=== PATIENT | male | born 1975 | race Caucasian/White ===

== ENCOUNTER → 2020-09-17 08:04 | Outpatient (BNVA) | payer OTHER, SELFPAY | PROVIDERS: PCP Internal Medicine Medical Oncology; Referring Provider Internal Medicine Medical Oncology; Visit Provider Surgery | DX: Z76.89 Persons encountering health services in other specified circumstances (principal) ==

== ENCOUNTER → 2020-10-27 07:26 | Outpatient (BNVA) | payer OTHER, SELFPAY | PROVIDERS: PCP Internal Medicine Medical Oncology; Visit Provider Surgery | DX: Z76.89 Persons encountering health services in other specified circumstances (principal) ==

== ENCOUNTER 2020-10-29 08:53 | Outpatient (REF) | payer OTHER, SELFPAY ==
[2020-10-29 09:38] LABS: MANUAL DIFF FLAG NO
[2020-10-29 09:41] LABS: Basophils Percent Auto 0.5 % (0-2); Eosinophils Absolute Auto 0.1 X10*3/uL (0.0-0.4); Eosinophils Percent Auto 1.2 % (0-4); Hemoglobin 15.5 g/dl (14.0-18.0); Imm Gran Abs Auto 0.01 X10*3/uL (0.00-0.03); Imm Gran Pct Auto 0.2 % (0.0-0.4); Lymphocytes Absolute Auto 1.8 X10*3/uL (1.2-4.9); Lymphocytes Percent Auto 43.2 % (20-40); Mean Corpuscular HGB Conc 33.7 g/dl (31.0-36.0); Mean Corpuscular Hemoglobin 30.3 pg (27.0-33.0); Mean Corpuscular Volume 89.8 fL (80-98); Mean Platelet Volume 10.5 fL (9.4-12.4); Monocytes Absolute Auto 0.4 X10*3/uL (0.1-1.2); Monocytes Percent Auto 8.2 % (2-11); Neutrophils Percent Auto 46.7 % (45-73); Platelet Count 184 X10*3/uL (160-400); Red Blood Count 5.12 X10*6/uL (4.60-5.80); White Blood Count 4.3 X10*3/uL (4.8-10.8)
[2020-10-29 10:18] LABS: Alanine Aminotransferase 22 U/L (0-40); Albumin Level 4.4 g/dL (3.5-5.0); Alkaline Phosphatase 121 U/L (39-117); Anion Gap 14 (12-20); Aspartate Amino Transferase 21 U/L (5-37); Bilirubin Total 1.7 mg/dL (0.0-1.0); Blood Urea Nitrogen 23 mg/dL (9-16); C Reactive Protein 0.24 mg/dL (< or = 0.50); Calcium 9.9 mg/dL (8.4-10.2); Carbon Dioxide 28 mmol/L (22-29); Chloride 104 mmol/L (96-108); Cholesterol 147 mg/dL; Estimated Glomerular Filt Rate > 60; Glucose Random 83 mg/dL (60-115); HDL Cholesterol 40 mg/dL; LDL Cholesterol Calculated 90 mg/dl; Potassium 4.9 mmol/l (3.3-5.1); Sodium 141 mmol/L (135-145); Total Protein 7.2 g/dL (6.5-8.0); Triglycerides 88 mg/dL
[2020-10-29 10:42] LABS: Ferritin 251 ng/mL (20-250); TSH reflex Free T4 0.95 mIU/mL (0.32-4.0); Vitamin D 25-OH Total 61.9 ng/mL (>30)
[2020-10-29 10:44] LABS: Estimated Average Glucose 88 mg/dL; Hemoglobin A1c % 4.7 %
[2020-10-29 11:04] LABS: Folate 17.6 ng/mL (> or = 4.0); Vitamin B12 804 pg/mL (200-900)
[2020-10-30 18:57] LABS: PTHI 20 pg/mL (14-64)
[2020-10-30 21:37] LABS: Insulin Level Total 1.9 uIU/mL
[2020-11-01 07:32] LABS: Zinc 93 mcg/dL (60-130)
[2020-11-02 12:03] LABS: Vitamin B1 13 nmol/L (8-30)
[2020-11-07 00:58] LABS: Vitamin A 110 mcg/dL (38-98)
== END 2020-10-29 08:54 | disposition home or self-care (01) ==
LOC: HO.LAB 08:53
PROVIDERS: PCP Internal Medicine Medical Oncology; Visit Provider Surgery
DX: K90.9 Intestinal malabsorption, unspecified (principal); I95.1 Orthostatic hypotension; Z98.84 Bariatric surgery status
CPT/HCPCS: 36415; 80053; 80061; 82306; 82607; 82728; 82746; 83036; 83525; 83970; 84425; 84443; 84590; 84630; 85025; 86140

== ENCOUNTER 2020-11-24 04:40 | Emergency (ER) | payer OTHER, SELFPAY ==
[2020-11-24 04:46] VITALS: BP 115/74; PULSE 86; RESP 16; TEMP 37.1; O2SAT 99; BMI 20.5
--- NOTE | 2020-11-24 04:53 | PC.NURSE ---
PT AMBULATES TO [facility] -3 WITH C/O FEVER, CHILLS, BODY ACHES, UNABLE TO TASTE SINCE LAST NIGHT. PT ARRIVES ALERT, RESPIRATIONS EASY, N/L. SKIN W/D. PT AWAITING FOR MD'S EVAL. WILL CONTINUE TO MONITOR PT.
--- NOTE | 2020-11-24 05:14 | ED.FEVER ---
HPI - Fever General Chief Complaint: Fever Stated Complaint: FLU LIKE SYMPTOMS Time Seen by Provider: 11/24/20 04:51 Source: patient Mode of arrival: ambulatory History of Present Illness HPI Narrative: This is a 45-year-old male who presents with onset of body aches and chills throughout the night and states that he had loss of taste this morning and measured his temperature 100.3. This was not associated with any GI symptoms, cough, sore throat, ear pain, COVID-19 exposure, recent travel. Related Data Home Medications Medication Instructions Recorded Confirmed pantoprazole 40 mg tablet,delayed 40 mg PO DAILY 09/17/20 release Allergies Allergy/AdvReac Type Severity Reaction Status Date / Time No Known Allergies Allergy Unverified 08/14/20 19:46 [No Known Allergies*] NKA Allergy Unknown Uncoded 07/07/20 00:00 Review of Systems Review of Systems: Pertinent positives and negatives as stated in the HPI and 10 point review systems is otherwise negative. PMFSH Past Medical History Source: nursing notes reviewed Medical History Intestinal malabsorption Surgical History Hx of laparoscopic gastric banding S/P laparoscopic sleeve gastrectomy Family History Family History Father No problems noted. Mother Sleep apnea Social History Social History Alcohol intake: current Smoking Status: Never smoker Advance Directives: No Physical Exam Vital Signs: Vital Signs: Last Vital Signs Temp 98.8 F 11/24/20 04:46 Pulse 86 11/24/20 04:46 Resp 16 11/24/20 04:46 BP 115/74 11/24/20 04:46 Pulse Ox 99 11/24/20 04:46 Body Mass Index 20.5 VITAL SIGNS: Reviewed. GENERAL: Well developed, well nourished, in no acute distress. HEAD: Normocephalic/atraumatic, EYES: PERRLA, EOMI intact without pain EARS: Ext canals without abnormality, TMs non-bulging and non-erythematous OROPHARYNX: no oral lesions noted, posterior pharynx clear and non-erythematous without noted tonsillar enlargement/erythema/exudates NECK: Supple, no adenopathy LUNGS: Normal breath sounds. No adventitious sounds or accessory muscle use. SpO2<99> CARDIOVASCULAR: Regular rate and rhythm without noted murmurs, no JVD or lower extremity edema. ABDOMEN: Soft, non-tender, non-distended with bowel sounds. No rigidity. No guarding. No palpable masses or hernias noted NEUROLOGIC: Alert and oriented x 4. Course Course Course Narrative: This is a 45-year-old male with history and clinical presentation consistent with viral symptoms without evidence hypoxia, tachypnea, and currently afebrile. Patient was COVID-19 tested and otherwise instructed to self quarantine to the results are called to him. He was encouraged to return should he develop any shortness of breath or worsening symptoms. Discharge Plan Discharge Clinical Impression: Viral syndrome Patient Disposition: Home, Self-Care Instructions: Viral Syndrome (ED) Additional Instructions: 1. Resume all home medications as prescribed. 2. Tylenol 1000 mg, orally, every 6 hours as needed for temperature than 100.4 or body aches. Do not exceed 4000 mg within 24 hours. 3. Increase fluid hydration especially with water 4. You have been COVID-19 tested today and must self quarantine as per [facility] guidelines. This means that you should not be grocery shopping or out in public then use until the results of your testing have been called to you. Prescriptions: No Action pantoprazole 40 mg tablet,delayed release (DR/EC) 40 mg PO DAILY RF: 0 Referrals: Mainor Masters MD [Primary Care Provider] - 2 days
== END 2020-11-24 05:18 | disposition home or self-care (01) ==
PROVIDERS: Emergency Provider Student in an Organized Health Care Education/Training Program; PCP Internal Medicine Medical Oncology
DX: B34.9 Viral infection, unspecified (principal); R50.9 Fever, unspecified; M79.10 Myalgia, unspecified site; Z20.828 Contact with and (suspected) exposure to other viral communicable diseases; Z79.899 Other long term (current) drug therapy
CPT/HCPCS: 99283; U0003

== ENCOUNTER → 2020-12-01 08:15 | Outpatient (BNVA) | payer OTHER, SELFPAY | PROVIDERS: PCP Internal Medicine Medical Oncology; Visit Provider Surgery | DX: Z76.89 Persons encountering health services in other specified circumstances (principal) ==

== ENCOUNTER → 2020-12-18 13:41 | Outpatient (BNVA) | payer OTHER, SELFPAY | PROVIDERS: PCP Internal Medicine Medical Oncology; Visit Provider Internal Medicine ==

== ENCOUNTER → 2020-12-23 08:12 | Outpatient (BNVA) | payer OTHER, SELFPAY | PROVIDERS: PCP Internal Medicine Medical Oncology; Visit Provider Physician Assistant ==

== ENCOUNTER → 2020-12-30 13:55 | Outpatient (BNVA) | payer OTHER, SELFPAY | PROVIDERS: PCP Internal Medicine Medical Oncology; Visit Provider Dietitian, Registered ==

== ENCOUNTER → 2021-01-27 08:12 | Outpatient (BNVA) | payer OTHER, SELFPAY | PROVIDERS: PCP Internal Medicine Medical Oncology; Visit Provider Dietitian, Registered ==

== ENCOUNTER → 2021-04-21 08:11 | Outpatient (BNVA) | payer OTHER, SELFPAY | PROVIDERS: PCP Internal Medicine Medical Oncology; Visit Provider Dietitian, Registered | DX: E66.3 Overweight (principal); Z68.26 Body mass index [BMI] 26.0-26.9, adult | CPT/HCPCS: 97803 ==

== ENCOUNTER → 2021-06-02 14:56 | Outpatient (BNVA) | payer OTHER, SELFPAY | PROVIDERS: PCP Internal Medicine Medical Oncology; Visit Provider Physician Assistant ==

== ENCOUNTER 2021-06-10 08:06 | Outpatient (REF) | payer OTHER, SELFPAY ==
[2021-06-10 08:38] LABS: MANUAL DIFF FLAG NO
[2021-06-10 08:41] LABS: Basophils Percent Auto 0.4 % (0-2); Eosinophils Percent Auto 0.8 % (0-4); Hematocrit 44.8 % (42-52); Hemoglobin 15.4 g/dl (14.0-18.0); Imm Gran Abs Auto 0.02 X10*3/uL (0.00-0.03); Imm Gran Pct Auto 0.4 % (0.0-0.4); Lymphocytes Percent Auto 39.1 % (20-40); Mean Corpuscular HGB Conc 34.4 g/dl (31.0-36.0); Mean Corpuscular Hemoglobin 29.8 pg (27.0-33.0); Mean Corpuscular Volume 86.8 fL (80-98); Mean Platelet Volume 9.5 fL (9.4-12.4); Monocytes Absolute Auto 0.4 X10*3/uL (0.1-1.2); Monocytes Percent Auto 8.2 % (2-11); Neutrophils Absolute Auto 2.6 X10*3/uL (2.0-8.3); Neutrophils Percent Auto 51.1 % (45-73); Platelet Count 178 X10*3/uL (160-400); Red Blood Count 5.16 X10*6/uL (4.60-5.80); Red Cell Distribution Width 12.3 % (11.0-16.0); White Blood Count 5.1 X10*3/uL (4.8-10.8)
[2021-06-10 09:01] LABS: Estimated Average Glucose 94 mg/dL; Hemoglobin A1c % 4.9 %
[2021-06-10 09:12] LABS: Alanine Aminotransferase 15 U/L (0-40); Albumin Level 4.3 g/dL (3.5-5.0); Alkaline Phosphatase 107 U/L (39-117); Anion Gap 12 (12-20); Aspartate Amino Transferase 19 U/L (5-37); Blood Urea Nitrogen 17 mg/dL (9-16); C Reactive Protein 0.06 mg/dL (< or = 0.50); Calcium 9.5 mg/dL (8.4-10.2); Carbon Dioxide 26 mmol/L (22-29); Chloride 107 mmol/L (96-108); Cholesterol 145 mg/dL; Estimated Glomerular Filt Rate > 60; Glucose Fasting 90 mg/dL (60-99); HDL Cholesterol 49 mg/dL; Iron 122 mcg/dL (45-160); LDL Cholesterol Calculated 76 mg/dl; Percent Iron Saturation 38 % (15-50); Potassium 4.5 mmol/L (3.3-5.1); Sodium 140 mmol/L (135-145); Total Iron Binding Capacity 317 mcg/dL (228-428); Total Protein 7.1 g/dL (6.5-8.0); Triglycerides 104 mg/dL; Unsaturated Iron Binding 195 ug/dL
[2021-06-10 09:32] LABS: Ferritin 224 ng/mL (20-250); TSH reflex Free T4 0.99 uIU/mL (0.32-4.0); Vitamin D 25-OH Total 27.1 ng/mL (>30)
[2021-06-10 09:49] LABS: Folate 8.6 ng/mL (> or = 4.0); Vitamin B12 463 pg/mL (200-900)
[2021-06-11 14:56] LABS: Calcium (PTHI) 9.5 mg/dL (8.6-10.3); PTHI 33 pg/mL (14-64)
[2021-06-11 23:26] LABS: Insulin Level Total 5.3 uIU/mL
[2021-06-15 03:07] LABS: Zinc 70 mcg/dL (60-130)
[2021-06-15 11:42] LABS: Vitamin B1 10 nmol/L (8-30)
[2021-06-15 19:01] LABS: Vitamin A 54 mcg/dL (38-98)
== END 2021-06-10 08:07 | disposition home or self-care (01) ==
LOC: HO.LAB 08:06
PROVIDERS: Physician Assistant; PCP Internal Medicine Medical Oncology; Visit Provider Surgery
DX: I95.1 Orthostatic hypotension (principal); K91.2 Postsurgical malabsorption, not elsewhere classified; E66.01 Morbid (severe) obesity due to excess calories; Z90.3 Acquired absence of stomach [part of]; Z98.84 Bariatric surgery status
CPT/HCPCS: 36415; 80053; 80061; 82306; 82607; 82728; 82746; 83036; 83525; 83540; 83970; 84425; 84443; 84590; 84630; 85025; 86140

== ENCOUNTER → 2021-06-30 13:41 | Outpatient (BNVA) | payer OTHER, SELFPAY | PROVIDERS: PCP Internal Medicine Medical Oncology; Visit Provider Internal Medicine | DX: E66.9 Obesity, unspecified (principal); G47.33 Obstructive sleep apnea (adult) (pediatric); Z99.89 Dependence on other enabling machines and devices; Z68.28 Body mass index [BMI] 28.0-28.9, adult | CPT/HCPCS: 97803 ==

== ENCOUNTER → 2021-07-06 12:17 | Outpatient (BNVA) | payer OTHER, SELFPAY | PROVIDERS: PCP Internal Medicine Medical Oncology; Visit Provider Internal Medicine ==

== ENCOUNTER → 2021-09-09 14:22 | Outpatient (BNVA) | payer OTHER, SELFPAY | PROVIDERS: PCP Internal Medicine Medical Oncology; Visit Provider Physician Assistant Surgical ==

== ENCOUNTER → 2021-09-29 16:22 | Outpatient (BNVA) | payer OTHER, SELFPAY | PROVIDERS: PCP Internal Medicine Medical Oncology; Visit Provider Physician Assistant Surgical ==

== ENCOUNTER → 2021-12-01 14:52 | Outpatient (BNVA) | payer OTHER, SELFPAY | PROVIDERS: PCP Internal Medicine Medical Oncology; Visit Provider Physician Assistant Surgical ==

== ENCOUNTER → 2022-01-05 08:07 | Outpatient (BNVA) | payer OTHER, SELFPAY | PROVIDERS: PCP Internal Medicine Medical Oncology; Visit Provider Physician Assistant Surgical | DX: I95.1 Orthostatic hypotension (principal); E66.9 Obesity, unspecified; E55.9 Vitamin D deficiency, unspecified; G47.33 Obstructive sleep apnea (adult) (pediatric); Z99.89 Dependence on other enabling machines and devices; Z98.84 Bariatric surgery status; Z68.33 Body mass index [BMI] 33.0-33.9, adult | CPT/HCPCS: 93005; Q3014 ==

== ENCOUNTER → 2022-02-03 08:10 | Outpatient (BNVA) | payer OTHER, SELFPAY | PROVIDERS: PCP Internal Medicine Medical Oncology; Referring Provider Surgery; Visit Provider Physician Assistant Surgical ==

== ENCOUNTER 2022-02-09 09:29 | Outpatient (REF) | payer OTHER, SELFPAY ==
[2022-02-09 09:51] LABS: MANUAL DIFF FLAG NO
[2022-02-09 10:31] LABS: Basophils Percent Auto 0.4 % (0-2); Eosinophils Absolute Auto 0.1 X10*3/uL (0.0-0.4); Eosinophils Percent Auto 1.3 % (0-4); Hematocrit 45.7 % (42.0-52.0); Hemoglobin 15.2 g/dl (14.0-18.0); Imm Gran Abs Auto 0.01 X10*3/uL (0.00-0.03); Imm Gran Pct Auto 0.2 % (0.0-0.4); Lymphocytes Percent Auto 37.6 % (20-40); Mean Corpuscular HGB Conc 33.3 g/dl (31.0-36.0); Mean Corpuscular Hemoglobin 29.2 pg (27.0-33.0); Mean Corpuscular Volume 87.7 fL (80.0-98.0); Mean Platelet Volume 9.3 fL (9.4-12.4); Monocytes Absolute Auto 0.4 X10*3/uL (0.1-1.2); Monocytes Percent Auto 7.9 % (2-11); Neutrophils Absolute Auto 2.8 x10*3/uL (2.0-8.3); Neutrophils Percent Auto 52.6 % (45-73); Platelet Count 187 X10*3/uL (160-400); Red Blood Count 5.21 X10*6/uL (4.60-5.80); Red Cell Distribution Width 12.4 % (11.0-16.0); White Blood Count 5.3 X10*3/uL (4.8-10.8)
[2022-02-09 10:34] LABS: Estimated Average Glucose 91 mg/dL; Hemoglobin A1c % 4.8 %
[2022-02-09 11:02] LABS: Anion Gap 10 (12-20); Blood Urea Nitrogen 14 mg/dL (9-16); C Reactive Protein 0.07 mg/dL (< or = 0.50); Calcium 9.5 mg/dL (8.4-10.2); Carbon Dioxide 30 mmol/L (22-29); Chloride 106 mmol/L (96-108); Cholesterol 131 mg/dL; Estimated Glomerular Filt Rate > 60; Glucose Random 83 mg/dL (60-115); HDL Cholesterol 42 mg/dL; Iron 93 mcg/dL (45-160); LDL Cholesterol Calculated 56 mg/dl; Potassium 4.3 mmol/L (3.3-5.1); Sodium 142 mmol/L (135-145); Triglycerides 169 mg/dL
[2022-02-09 11:16] LABS: Ferritin 177 ng/mL (20-250); TSH reflex Free T4 1.14 uIU/mL (0.32-4.0); Vitamin D 25-OH Total 17.9 ng/mL (>30)
[2022-02-09 11:27] LABS: Percent Iron Saturation 29 % (15-50); Total Iron Binding Capacity 325 mcg/dL (228-428); Unsaturated Iron Binding 232 ug/dL
[2022-02-09 11:38] LABS: Folate 8.2 ng/mL (> or = 4.0); Vitamin B12 473 pg/mL (200-900)
[2022-02-11 07:16] LABS: Calcium (PTHI) 9.9 mg/dL (8.6-10.3); PTHI 36 pg/mL (16-77)
[2022-02-12 13:02] LABS: Zinc 70 mcg/dL (60-130)
[2022-02-13 12:42] LABS: Vitamin B1 13 nmol/L (8-30)
[2022-02-15 13:47] LABS: Vitamin A 65 mcg/dL (38-98)
== END 2022-02-09 09:30 | disposition home or self-care (01) ==
LOC: HO.LAB 09:29
PROVIDERS: PCP Internal Medicine Medical Oncology; Visit Provider Physician Assistant Surgical
DX: E66.9 Obesity, unspecified (principal); E55.9 Vitamin D deficiency, unspecified; E53.8 Deficiency of other specified B group vitamins; Z98.84 Bariatric surgery status
CPT/HCPCS: 36415; 80048; 80061; 82306; 82607; 82728; 82746; 83036; 83540; 83970; 84425; 84443; 84590; 84630; 85025; 86140

== ENCOUNTER → 2022-03-03 08:10 | Outpatient (BNVA) | payer OTHER, SELFPAY | PROVIDERS: PCP Internal Medicine Medical Oncology; Visit Provider Physician Assistant Surgical | DX: Z13.89 Encounter for screening for other disorder (principal) ==

== ENCOUNTER → 2022-03-11 11:49 | Outpatient (BNVA) | payer OTHER, SELFPAY | PROVIDERS: PCP Internal Medicine Medical Oncology; Visit Provider Counselor Mental Health | DX: Z13.89 Encounter for screening for other disorder (principal) ==

== ENCOUNTER → 2022-03-31 08:18 | Outpatient (BNVA) | payer OTHER, SELFPAY | PROVIDERS: PCP Internal Medicine Medical Oncology; Visit Provider Physician Assistant Surgical | DX: E66.9 Obesity, unspecified (principal) ==

== ENCOUNTER → 2022-04-07 17:00 | Outpatient (BNVA) | payer OTHER, SELFPAY | PROVIDERS: PCP Internal Medicine Medical Oncology; Visit Provider Counselor Mental Health | DX: Z13.89 Encounter for screening for other disorder (principal) ==

== ENCOUNTER → 2022-04-14 17:00 | Outpatient (BNVA) | payer OTHER, SELFPAY | PROVIDERS: PCP Internal Medicine Medical Oncology; Visit Provider Counselor Mental Health | DX: Z13.89 Encounter for screening for other disorder (principal) ==

== ENCOUNTER → 2022-05-26 17:00 | Outpatient (BNVA) | payer OTHER, SELFPAY | PROVIDERS: PCP Internal Medicine Medical Oncology; Visit Provider Counselor Mental Health ==

== ENCOUNTER → 2022-06-09 17:00 | Outpatient (BNVA) | payer OTHER, SELFPAY | PROVIDERS: PCP Internal Medicine Medical Oncology; Visit Provider Counselor Mental Health ==

== ENCOUNTER → 2022-07-28 17:00 | Outpatient (BNVA) | payer OTHER, SELFPAY | PROVIDERS: PCP Internal Medicine Medical Oncology; Visit Provider Counselor Mental Health | DX: F43.20 Adjustment disorder, unspecified (principal); Z98.84 Bariatric surgery status | CPT/HCPCS: 90853 ==

== ENCOUNTER → 2022-08-04 17:00 | Outpatient (BNVA) | payer OTHER, SELFPAY | PROVIDERS: PCP Internal Medicine Medical Oncology; Visit Provider Counselor Mental Health | DX: E66.9 Obesity, unspecified (principal) | CPT/HCPCS: 90882 ==

== ENCOUNTER → 2022-08-11 17:00 | Outpatient (BNVA) | payer OTHER, SELFPAY | PROVIDERS: PCP Internal Medicine Medical Oncology; Visit Provider Counselor Mental Health ==

== ENCOUNTER → 2022-08-25 17:00 | Outpatient (BNVA) | payer OTHER, SELFPAY | PROVIDERS: PCP Internal Medicine Medical Oncology; Visit Provider Counselor Mental Health | DX: F32.A Depression, unspecified (principal); Z98.84 Bariatric surgery status | CPT/HCPCS: 90853 ==

== ENCOUNTER → 2022-09-01 17:00 | Outpatient (BNVA) | payer OTHER, SELFPAY | PROVIDERS: PCP Internal Medicine Medical Oncology; Visit Provider Counselor Mental Health | DX: F43.20 Adjustment disorder, unspecified (principal); Z98.84 Bariatric surgery status | CPT/HCPCS: 90853 ==

== ENCOUNTER → 2022-09-15 17:00 | Outpatient (BNVA) | payer OTHER, SELFPAY | PROVIDERS: PCP Internal Medicine Medical Oncology; Visit Provider Counselor Mental Health | DX: F43.20 Adjustment disorder, unspecified (principal); Z98.84 Bariatric surgery status | CPT/HCPCS: 90853 ==

== ENCOUNTER → 2022-09-22 17:00 | Outpatient (BNVA) | payer OTHER, SELFPAY | PROVIDERS: PCP Internal Medicine Medical Oncology; Visit Provider Counselor Mental Health | DX: F43.20 Adjustment disorder, unspecified (principal); Z98.84 Bariatric surgery status | CPT/HCPCS: 90853 ==

== ENCOUNTER → 2022-09-29 17:00 | Outpatient (BNVA) | payer OTHER, SELFPAY | PROVIDERS: PCP Internal Medicine Medical Oncology; Visit Provider Counselor Mental Health ==

== ENCOUNTER → 2022-10-13 17:00 | Outpatient (BNVA) | payer OTHER, SELFPAY | PROVIDERS: PCP Internal Medicine Medical Oncology; Visit Provider Counselor Mental Health ==

== ENCOUNTER → 2022-10-27 17:00 | Outpatient (BNVA) | payer OTHER, SELFPAY | PROVIDERS: PCP Internal Medicine Medical Oncology; Visit Provider Counselor Mental Health | DX: F43.20 Adjustment disorder, unspecified (principal); Z98.84 Bariatric surgery status | CPT/HCPCS: 90853 ==

== ENCOUNTER → 2022-11-03 17:00 | Outpatient (BNVA) | payer OTHER, SELFPAY | PROVIDERS: PCP Internal Medicine Medical Oncology; Visit Provider Counselor Mental Health | DX: F41.1 Generalized anxiety disorder (principal); Z98.84 Bariatric surgery status | CPT/HCPCS: 90853 ==

== ENCOUNTER → 2022-11-24 17:00 | Outpatient (BNVA) | payer OTHER, SELFPAY | PROVIDERS: PCP Internal Medicine Medical Oncology; Visit Provider Counselor Mental Health | DX: Z13.89 Encounter for screening for other disorder (principal) ==

== ENCOUNTER → 2022-12-01 17:00 | Outpatient (BNVA) | payer OTHER, SELFPAY | PROVIDERS: PCP Internal Medicine Medical Oncology; Visit Provider Counselor Mental Health | DX: F41.1 Generalized anxiety disorder (principal); Z98.84 Bariatric surgery status | CPT/HCPCS: 90853 ==

== ENCOUNTER → 2022-12-29 17:04 | Outpatient (BNVA) | payer OTHER, SELFPAY | PROVIDERS: PCP Internal Medicine Medical Oncology; Visit Provider Counselor Mental Health | DX: F41.1 Generalized anxiety disorder (principal); Z98.84 Bariatric surgery status | CPT/HCPCS: 90853 ==

== ENCOUNTER → 2023-01-05 16:59 | Outpatient (BNVA) | payer OTHER, SELFPAY | PROVIDERS: PCP Internal Medicine Medical Oncology; Visit Provider Counselor Mental Health | DX: F41.1 Generalized anxiety disorder (principal); Z98.84 Bariatric surgery status | CPT/HCPCS: 90853 ==

== ENCOUNTER → 2023-01-19 17:00 | Outpatient (BNVA) | payer OTHER, SELFPAY | PROVIDERS: PCP Internal Medicine Medical Oncology; Visit Provider Counselor Mental Health | DX: F41.1 Generalized anxiety disorder (principal); Z98.84 Bariatric surgery status; Z87.891 Personal history of nicotine dependence | CPT/HCPCS: 90853 ==

== ENCOUNTER → 2023-01-26 16:55 | Outpatient (BNVA) | payer OTHER, SELFPAY | PROVIDERS: PCP Internal Medicine Medical Oncology; Visit Provider Counselor Mental Health | DX: F33.9 Major depressive disorder, recurrent, unspecified (principal); Z98.84 Bariatric surgery status | CPT/HCPCS: 90853 ==

== ENCOUNTER → 2023-02-02 17:08 | Outpatient (BNVA) | payer OTHER, SELFPAY | PROVIDERS: PCP Internal Medicine Medical Oncology; Visit Provider Counselor Mental Health | DX: F33.9 Major depressive disorder, recurrent, unspecified (principal); Z98.84 Bariatric surgery status | CPT/HCPCS: 90853 ==

== ENCOUNTER → 2023-02-16 19:20 | Outpatient (BNVA) | payer OTHER, SELFPAY | PROVIDERS: PCP Internal Medicine Medical Oncology; Visit Provider Counselor Mental Health | DX: Z13.89 Encounter for screening for other disorder (principal) ==

== ENCOUNTER → 2023-02-23 17:01 | Outpatient (BNVA) | payer OTHER, SELFPAY | PROVIDERS: PCP Internal Medicine Medical Oncology; Visit Provider Counselor Mental Health | DX: F33.9 Major depressive disorder, recurrent, unspecified (principal); Z98.84 Bariatric surgery status | CPT/HCPCS: 90853 ==

== ENCOUNTER → 2023-03-02 16:57 | Outpatient (BNVA) | payer OTHER, SELFPAY | PROVIDERS: PCP Internal Medicine Medical Oncology; Visit Provider Counselor Mental Health | DX: F33.9 Major depressive disorder, recurrent, unspecified (principal); Z98.84 Bariatric surgery status | CPT/HCPCS: 90853 ==

== ENCOUNTER → 2023-03-30 17:02 | Outpatient (BNVA) | payer OTHER, SELFPAY | PROVIDERS: PCP Internal Medicine Medical Oncology; Visit Provider Counselor Mental Health | DX: F33.9 Major depressive disorder, recurrent, unspecified (principal); Z98.84 Bariatric surgery status | CPT/HCPCS: 90853 ==

== ENCOUNTER → 2023-04-20 17:00 | Outpatient (BNVA) | payer OTHER, SELFPAY | PROVIDERS: PCP Internal Medicine Medical Oncology; Visit Provider Counselor Mental Health | DX: F33.9 Major depressive disorder, recurrent, unspecified (principal); Z98.84 Bariatric surgery status | CPT/HCPCS: 90853 ==

== ENCOUNTER → 2023-04-27 17:07 | Outpatient (BNVA) | payer OTHER, SELFPAY | PROVIDERS: PCP Internal Medicine Medical Oncology; Visit Provider Counselor Mental Health | DX: F33.9 Major depressive disorder, recurrent, unspecified (principal); Z98.84 Bariatric surgery status | CPT/HCPCS: 90853 ==

== ENCOUNTER → 2023-05-04 19:15 | Outpatient (BNVA) | payer OTHER, SELFPAY | PROVIDERS: PCP Internal Medicine Medical Oncology; Visit Provider Counselor Mental Health | DX: F33.9 Major depressive disorder, recurrent, unspecified (principal); Z98.84 Bariatric surgery status | CPT/HCPCS: 90853 ==

== ENCOUNTER → 2023-05-25 17:00 | Outpatient (BNVA) | payer OTHER, SELFPAY | PROVIDERS: PCP Internal Medicine Medical Oncology; Visit Provider Counselor Mental Health ==

== ENCOUNTER → 2023-05-25 17:00 | Outpatient (BNVA) | payer OTHER, SELFPAY | PROVIDERS: PCP Internal Medicine Medical Oncology; Visit Provider Counselor Mental Health ==

== ENCOUNTER 2023-06-15 17:34 | Outpatient (AMB) | payer OTHER, SELFPAY ==
--- NOTE | 2023-06-16 14:38 | MHC.WMTHER ---
Intake Intake Visit Reasons: group therapy Allergies No Known Allergies [No Known Allergies*] Allergy (Verified 06/02/22 16:05) PFSH Medical History Intestinal malabsorption Intestinal malabsorption following gastrectomy KLARISSA on CPAP Overweight (BMI 25.0-29.9) Vitamin B12 deficiency Vitamin D deficiency Surgical History Hx of laparoscopic gastric banding S/P laparoscopic sleeve gastrectomy Family History Father No problems noted. Mother Sleep apnea Social History Alcohol intake: current Alcohol intake frequency: holidays/special occasions only Patient Tobacco Use Status: Former Tobacco user Years Smoked: 1 year Behavioral Health Assessment Weight Management Therapy Therapy Notes Details Group therapy on cravings, urges and how to curb unwanted behaviors. Discussed handout on [employer]fing. Patient shared his success and struggles with the group. He has been having ongoing difficulty at work and will often cope with food. Assessment & Plan Assessment & Plan (1) Major depressive disorder, recurrent, unspecified: Code(s): F33.9 - Major depressive disorder, recurrent, unspecified (2) S/P laparoscopic sleeve gastrectomy: Code(s): Z98.84 - Bariatric surgery status Plan Pt would benefit from post op group for support and development of positive coping skills, and behavior modification. he is struggling and off his meal plan as wel as exercise regimen. He appears in improved mood this week compared to previous weeks. Coding Level of Care Code Grp Psych (76493) Diagnoses Major depressive disorder, recurrent, unspecified F33.9 S/P laparoscopic sleeve gastrectomy Z98.84 Time Spent (min) 60
== END 2023-06-16 14:38 | disposition home or self-care (01) ==
LOC: HO.HBST 17:34
PROVIDERS: PCP Internal Medicine Medical Oncology; Visit Provider Counselor Mental Health
DX: F33.9 Major depressive disorder, recurrent, unspecified (principal); Z98.84 Bariatric surgery status

== ENCOUNTER → 2023-06-15 17:34 | Outpatient (BNVA) | payer OTHER, SELFPAY | PROVIDERS: PCP Internal Medicine Medical Oncology; Visit Provider Counselor Mental Health | DX: F33.9 Major depressive disorder, recurrent, unspecified (principal); E66.3 Overweight; Z98.84 Bariatric surgery status | CPT/HCPCS: 90853 ==

== ENCOUNTER → 2023-07-13 17:00 | Outpatient (BNVA) | payer OTHER, SELFPAY | PROVIDERS: PCP Internal Medicine Medical Oncology; Visit Provider Counselor Mental Health ==

== ENCOUNTER → 2023-07-13 17:00 | Outpatient (BNVA) | payer OTHER, SELFPAY | PROVIDERS: PCP Internal Medicine Medical Oncology; Visit Provider Counselor Mental Health ==

== ENCOUNTER 2023-08-24 19:11 | Outpatient (AMB) | payer OTHER, SELFPAY ==
--- NOTE | 2023-08-31 11:02 | MHC.WMTHER ---
Intake Intake Visit Reasons: Group Therapy Allergies No Known Allergies [No Known Allergies*] Allergy (Verified 06/02/22 16:05) PFSH Medical History Intestinal malabsorption Intestinal malabsorption following gastrectomy KLARISSA on CPAP Overweight (BMI 25.0-29.9) Vitamin B12 deficiency Vitamin D deficiency Surgical History Hx of laparoscopic gastric banding S/P laparoscopic sleeve gastrectomy Family History Father No problems noted. Mother Sleep apnea Social History Alcohol intake: current Alcohol intake frequency: holidays/special occasions only Patient Tobacco Use Status: Former Tobacco user Years Smoked: 1 year Behavioral Health Assessment Weight Management Therapy Therapy Notes Details Group therapy session, continuing the conversation on emotional/binge eating from previous weeks workshop. Discussed somatic therapies and POV of the disordered eating as a symptom. Patient was enagaged and cooperative. Assessment & Plan Assessment & Plan (1) Major depressive disorder, recurrent, unspecified: Code(s): F33.9 - Major depressive disorder, recurrent, unspecified (2) S/P laparoscopic sleeve gastrectomy: Code(s): Z98.84 - Bariatric surgery status Plan Pt would benefit from post op group for support and development of positive coping skills, and behavior modification. he is struggling and off his meal plan as well as exercise regimen. He appears in improved mood this week compared to previous weeks. Coding Level of Care Code Grp Psych (76345) Diagnoses Major depressive disorder, recurrent, unspecified F33.9 S/P laparoscopic sleeve gastrectomy Z98.84 Time Spent (min) 60
== END 2023-08-31 11:02 | disposition home or self-care (01) ==
PROVIDERS: PCP Internal Medicine Medical Oncology; Visit Provider Counselor Mental Health
DX: F33.9 Major depressive disorder, recurrent, unspecified (principal); Z98.84 Bariatric surgery status

== ENCOUNTER → 2023-08-24 19:11 | Outpatient (BNVA) | payer OTHER, SELFPAY | PROVIDERS: PCP Internal Medicine Medical Oncology; Visit Provider Counselor Mental Health | DX: F33.9 Major depressive disorder, recurrent, unspecified (principal); Z98.84 Bariatric surgery status | CPT/HCPCS: 90853 ==

== ENCOUNTER 2023-09-21 19:02 | Outpatient (AMB) | payer OTHER, SELFPAY ==
--- NOTE | 2023-09-22 09:41 | MHC.WMTHER ---
Intake Intake Visit Reasons: Group Therapy Allergies No Known Allergies [No Known Allergies*] Allergy (Verified 06/02/22 16:05) PFSH Medical History Intestinal malabsorption Intestinal malabsorption following gastrectomy KLARISSA on CPAP Overweight (BMI 25.0-29.9) Vitamin B12 deficiency Vitamin D deficiency Surgical History Hx of laparoscopic gastric banding S/P laparoscopic sleeve gastrectomy Family History Father No problems noted. Mother Sleep apnea Social History Alcohol intake: current Alcohol intake frequency: holidays/special occasions only Patient Tobacco Use Status: Former Tobacco user Years Smoked: 1 year Behavioral Health Assessment Weight Management Therapy Therapy Notes Details Group therapy session on Hurry Sickness . How to reduce stress related to rushing, lateness, poor time management. Pt was present, less engaging today however attentive. Assessment & Plan Assessment & Plan (1) Major depressive disorder, recurrent, unspecified: Code(s): F33.9 - Major depressive disorder, recurrent, unspecified (2) S/P laparoscopic sleeve gastrectomy: Code(s): Z98.84 - Bariatric surgery status Plan Pt would benefit from post op group for support and development of positive coping skills, and behavior modification. he is struggling and off his meal plan as well as exercise regimen. He appears in improved mood this week compared to previous weeks. Coding Level of Care Code Grp Psych ([id number]) Diagnoses Major depressive disorder, recurrent, unspecified F33.9 S/P laparoscopic sleeve gastrectomy Z98.84 Time Spent (min) 60
== END 2023-09-22 09:41 | disposition home or self-care (01) ==
LOC: HO.HBST 19:02
PROVIDERS: PCP Internal Medicine Medical Oncology; Visit Provider Counselor Mental Health
DX: F33.9 Major depressive disorder, recurrent, unspecified (principal); Z98.84 Bariatric surgery status

== ENCOUNTER → 2023-09-21 19:02 | Outpatient (BNVA) | payer OTHER, MEDICAID, SELFPAY | PROVIDERS: PCP Internal Medicine Medical Oncology; Visit Provider Counselor Mental Health | DX: F33.9 Major depressive disorder, recurrent, unspecified (principal); Z98.84 Bariatric surgery status | CPT/HCPCS: 90853 ==

== ENCOUNTER 2024-03-27 10:59 | Outpatient (AMB) | payer MEDICAID, SELFPAY ==
--- NOTE | 2024-03-27 11:08 | MHC.OFFVIS ---
Vital Signs 03/27/24 11:09 Height 5 ft 10 in Weight 317 lb 7.45 oz BMI 45.5 BP 120/74 Blood Pressure Location Lt brachial Position Sitting Pulse 91 Pulse Source Pulse Oximeter Pulse Oximetry (%) 98 Oxygen Delivery Method Room Air Intake Visit Reasons: Obstructive sleep apnea Intake Note: pt is here for follow up and KLARISSA, he states for the past month , he has not been sleeping well, it seems like he doesn't feel pressure like in the past, sleeping 9-10 hours and still waking up tired, and snoring very loudly at times. Entry Level Account Representative Required: No Allergies No Known Allergies [No Known Allergies*] Allergy (Verified 03/27/24 11:30) Medication List - Last Reconciled 03/27/24 by Ambrocio Becker MD bupropion HCl XL 300 mg PO DAILY cholecalciferol (vitamin D3) (Vitamin D3) 125 mcg PO DAILY Do you need a note to return to daycare/school/sports/work: No HPI HPI Obstructive sleep apnea: Details: THIS GENTLEMAN IS 48 YEARS OLD MORBIDLY OBESE, AND CASE OF OBSTRUCTIVE SLEEP APNEA. HIS WEIGHT IS AT A STENT STILL, HE IS NOW TALKING TO A DIETITIAN, AND TRYING TO CONTROL HIS CALORIES INTAKE. HE HAS BEEN USING HIS CPAP REGULARLY WITH FULL FACE MASK AND PRESSURE IS RELATIVELY LOW, 10 CM. LAST TIME HE WAS SEEN BY ME WAS MORE THAN 2 YEARS AGO, AND HE WAS DOING VERY WELL WITH HIS CPAP THERAPY. HE CONTINUES TO USE THE CPAP EVERY NIGHT AND KEEPS IT ON ALMOST 9 HOURS. BUT STILL WAKES UP SLEEPY AND TIRED. HE CLAIMS THAT HE SNORES EVEN WITH THE MASK ON. AND HE HAS NOT GETTING ENOUGH PRESSURE. AT THE SAME TIME HE HAS POOR SLEEP MAINLY BECAUSE OF HIS STRESS DISORDER. HE IS WORKING WITH THE THERAPIST. AND IS ON BUPROPION 300 MG DAILY. ON LICENSE OF [facility] Medical History (Updated 03/27/24 @ 11:39 by Ambrocio Becker MD) Morbid obesity KLARISSA on CPAP Vitamin B12 deficiency Vitamin D deficiency Overweight (BMI 25.0-29.9) Intestinal malabsorption following gastrectomy Intestinal malabsorption Surgical History Hx of laparoscopic gastric banding S/P laparoscopic sleeve gastrectomy Family History Father No problems noted. Mother Sleep apnea Social History Alcohol intake: current Alcohol intake frequency: holidays/special occasions only Patient Tobacco Use Status: Former Tobacco user Years Smoked: 1 year Review of Systems Const All systems reviewed & are unremarkable except as noted in HPI and below Denies snoring Eyes Reports no additional complaints ENT Reports no additional complaints Card Denies chest pain, Denies irregular heart rhythm, Denies leg edema and Denies dyspnea on exertion Resp Denies cough, Denies dyspnea on exertion, Denies snoring and Denies wheezing GI Reports as per HPI Reports no additional complaints Musc Reports no additional complaints Skin/Breast Reports system reviewed and no additional complaints, except as documented Neuro Reports no additional complaints Psych Reports no additional complaints Aller/Immun Denies wheezing Physical Exam Vital Signs: Last Vital Signs Pulse 91 03/27/24 11:09 BP 120/74 03/27/24 11:09 Pulse Ox 98 03/27/24 11:09 Oxygen Delivery Method Room Air 03/27/24 11:09 BMI result Body Mass Index 45.5 Const General: healthy appearing, comfortable, no acute distress, alert and awake Orientation/consciousness: patient oriented x3 HEENT Head: Yes normal to inspection General nose exam: No nasal polyps present and No nasal discharge present Face and sinus: Yes sinuses nontender Mouth: oropharynx normal Throat: Yes posterior oropharynx normal Eyes General: appearance normal, both eyes and all related structures Neck Neck: Yes normal visual inspection, Yes no lymphadenopathy, Yes trachea midline and Yes no JVD Thyroid: Thyroid normal Chest Chest palpation & inspection: normal inspection of the chest, normal palpation of entire chest wall and no tenderness Resp Effort & Inspection: normal respiratory effort Auscultation: clear to auscultation bilaterally, no crackles and no wheezes Percussion: percussion normal Cardio Palpation: normal PMI Rate: regular rate Rhythm: regular rhythm Heart sounds: no gallops and no murmurs Peripheral pulses: Peripheral pulses 2+ throughout GI Palpation (GI): Soft to palpation, nontender, No hepatosplenomegaly present and no masses Auscultation: normal bowel sounds Back/Spine/Pelvis Thoracic/Lumbar Spine: thoracic and lumbar spine normal to inspection Skin General skin exam: no rashes or lesions noted Neuro General: patient oriented x3 and no focal motor deficits Cranial nerves: Yes CN's II-XII intact bilaterally Extrem General: Yes normal to inspection, Yes no clubbing, cyanosis or edema and Yes no calf tenderness Psych Appearance: grossly normal and well kempt Speech and movement: Normal speech and movement present Results Reviewed Results Reviewed: COMPLIANCE REPORT FOR THE LAST 30 NIGHTS REVIEWED WHICH IS EXCELLENT USED 30/30 NIGHTS AVERAGE USE PER NIGHT 9 HOURS 11 MINUTES, PRESSURE IS 10 CM, THERE IS NO SIGNIFICANT AIR LEAK. RESIDUAL AHI 2.8 Assessment & Plan Assessment & Plan (1) Morbid obesity: Comment: THIS GENTLEMAN HAS HISTORY OF BARIATRIC SURGERY IN THE PAST. INITIALLY HE DID LOSE SOME WEIGHT. NOW HIS WEIGHT IS AT A STANDSTILL. HE CLAIMS THAT HE IS WORKING WITH A DIETITIAN AND TRYING TO LIMIT HIS CALORIES INTAKE. Code(s): E66.01 - Morbid (severe) obesity due to excess calories Category: Medical Plan: ENCOURAGED TO CONTINUE WORKING WITH THE DIETITIAN AND CONTROL HIS DIETARY INTAKE. ALSO ENCOURAGED TO DO SOME EXERCISE AND WALKING EVERY DAY. (2) KLARISSA on CPAP: Comment: HE HAS LONGSTANDING HISTORY OF OBSTRUCTIVE SLEEP APNEA. HE HAS BEEN A REGULAR USER OF CPAP WITH GOOD RESULTS. COMPLAINS OF DIFFICULTY IN SLEEPING, FEELS THAT THE PRESSURE IS LOW, WAKES UP TIRED. HIS POOR SLEEP MAY BE DUE TO HIS UNDERLYING STRESS DISORDER. THE COMPLIANCE REPORT IS FAIRLY GOOD, WITH HIS RESIDUAL AHI OF 2.8 Code(s): G47.33 - Obstructive sleep apnea (adult) (pediatric); Z99.89 - Dependence on other enabling machines and devices Category: Medical Plan: WILL INCREASE THE PRESSURE TO 12 CM, CONTINUE USING CPAP WITH FULLFACE MASK. DISCUSSED WITH HIM RELAXATION EXERCISES FOR A GOOD SLEEP. ADVISE THAT HE SHOULD CONTINUE TO WORK WITH THE THERAPIST. Coding Level of Care Code Est Pt Level 3 (85588) Diagnoses Morbid obesity E66.01 KLARISSA on CPAP G47.33; Z99.89
[2024-03-27 11:09] VITALS: BP 120/74; PULSE 91; O2SAT 98; BMI 45.5
== END 2024-03-27 11:29 | disposition home or self-care (01) ==
PROVIDERS: PCP Internal Medicine Medical Oncology; Visit Provider Internal Medicine
DX: E66.01 Morbid (severe) obesity due to excess calories (principal); G47.33 Obstructive sleep apnea (adult) (pediatric); Z99.89 Dependence on other enabling machines and devices
CPT/HCPCS: 99213

== ENCOUNTER → 2024-03-27 10:59 | Outpatient (BNVA) | payer MEDICAID, SELFPAY | PROVIDERS: PCP Internal Medicine Medical Oncology; Visit Provider Internal Medicine | DX: G47.33 Obstructive sleep apnea (adult) (pediatric) (principal); E66.01 Morbid (severe) obesity due to excess calories; Z99.89 Dependence on other enabling machines and devices; Z68.42 Body mass index [BMI] 45.0-49.9, adult | CPT/HCPCS: 99212 ==

== ENCOUNTER 2024-05-11 08:00 | Day surgery (SDC) | payer MEDICAID, SELFPAY ==
[2024-05-09 10:42] VITALS: BMI 43.2
--- NOTE | 2024-05-10 11:51 | HO.ANESPROP2 ---
Documented by User: Alfreda Villa NP 05/10/24 11:51 HPI - Anesthesia Eval Consult details Narrative: 48yo M for Colonoscopy PMFSH Active Problems Active Problems: All Active Problems Major depressive disorder, recurrent, unspecified (Acute) Generalized anxiety disorder (Acute) Depressive disorder (Acute) Obesity (BMI 30.0-34.9) (Acute) Adjustment disorder, unspecified (Acute) Syncope and collapse (Acute) Intestinal malabsorption (Acute) Overweight (Acute) Pre-syncope (Acute) Orthostatic hypotension (Acute) Morbid obesity (Acute) KLARISSA on CPAP (Acute) Vitamin B12 deficiency (Acute) Vitamin D deficiency (Acute) Overweight (BMI 25.0-29.9) (Acute) S/P laparoscopic sleeve gastrectomy (Acute) Intestinal malabsorption following gastrectomy (Acute) Past Medical History Medical History Asthma Morbid obesity KLARISSA on CPAP Vitamin B12 deficiency Vitamin D deficiency Intestinal malabsorption following gastrectomy Family History Family History Father No problems noted. Mother Sleep apnea Surgical History Surgical History Hx of laparoscopic gastric banding S/P laparoscopic sleeve gastrectomy Social History Social History (Updated 05/09/24 @ 10:44 by Franny Whitehead RN) Alcohol intake: current Alcohol intake frequency: holidays/special occasions only Patient Tobacco Use Status: Never used Tobacco Years Smoked: 1 year Use of substances other than those prescribed or required for medical reasons: Yes Substance Use Type Other:: edibles Substance Use Frequency: Occasionally Are you DNR?: No Advance Directives: No Advance Directives Information Provided: Yes Meds Allergies Allergy/AdvReac Type Severity Reaction Status Date / Time No Known Allergies Allergy Verified 05/11/24 08:55 [No Known Allergies*] Home Medications ?Medication ?Instructions ?Recorded ?Confirmed ?Last Taken ?Type bupropion HCl 300 mg 24 hr tablet, 300 mg PO DAILY 03/27/24 05/11/24 Unknown History extended release tadalafil 5 mg tablet 5 mg PO DAILY 05/09/24 05/11/24 Unknown History Exam Height,Weight and Vital Signs: Height 5 ft 11 in Weight 140.387 kg Assessment and Plan Assessment Anesthesia Assessment: Chart Reviewed Documented by User: Kj Ryder MD 05/11/24 08:56 PMFSH Past Medical History Medical History Asthma Morbid obesity KLARISSA on CPAP Vitamin B12 deficiency Vitamin D deficiency Intestinal malabsorption following gastrectomy Family History Family History Father No problems noted. Mother Sleep apnea Family history of problems with anesthesia: No Surgical History Surgical History Hx of laparoscopic gastric banding S/P laparoscopic sleeve gastrectomy History of Problems with Anesthesia: No Social History Social History (Updated 05/09/24 @ 10:44 by Franny Whitehead RN) Alcohol intake: current Alcohol intake frequency: holidays/special occasions only Patient Tobacco Use Status: Never used Tobacco Years Smoked: 1 year Use of substances other than those prescribed or required for medical reasons: Yes Substance Use Type Other:: edibles Substance Use Frequency: Occasionally Are you DNR?: No Advance Directives: No Advance Directives Information Provided: Yes Meds Allergies Allergy/AdvReac Type Severity Reaction Status Date / Time No Known Allergies Allergy Verified 05/11/24 08:55 [No Known Allergies*] Home Medications ?Medication ?Instructions ?Recorded ?Confirmed ?Last Taken ?Type bupropion HCl 300 mg 24 hr tablet, 300 mg PO DAILY 03/27/24 05/11/24 Unknown History extended release tadalafil 5 mg tablet 5 mg PO DAILY 05/09/24 05/11/24 Unknown History Exam Airway Mallampati Class: IV TM Dist: >3cm Neck ROM: Full Assessment and Plan Assessment Anesthesia Assessment: Anesthesia Plan Discussed Final Anesthetic Review Family History of Problems with Anesthesia: No History of Problems with Anesthesia: No NPO: Yes ASA Class: III Final Preanesthetic Review: No Changes in Pt Med Stat, Meds/Allgs Chart Reviewed, Consent Obtained/Reviewed and Anes Risks/Benef Reviewed Patient Risk: Intermediate Procedure Risk: Low Anesthetic Plan Anesthetic Plan: TIVA Disposition: Standard PACU
[2024-05-11 08:40] VITALS: BMI 43.4
[2024-05-11 08:42] VITALS: BP 128/80; PULSE 77; RESP 16; TEMP 36.4; O2SAT 97
[2024-05-11] MEDS: Lactated Ringers 1,000 ML 100 ML IVCONT (08:55)
--- NOTE | 2024-05-11 09:05 | MHC.SHP ---
Pre-Procedural Eval Section A - 24 Hr Update-Section A only Date of Service: 05/11/24 The patient is an INPATIENT: No Changes since office visit: No Cold of Flu in the past 2 weeks, No New Medical Problems, No Changes in Medication and No Patient answered all questions The patient has been examined within 24 hours of the surgical procedure. The History & Physical has been completed within 30 days and I have reviewed it.: Yes Section B - Complete if H&P > 30 days Chief Complaint: screening Allergies: Allergies Allergy/AdvReac Type Severity Reaction Status Date / Time No Known Allergies Allergy Verified 05/11/24 08:55 [No Known Allergies*] Plan I have reviewed the history and physical and performed a pertinent physical examination on my patient. No changes have occurred unless specified. Time Spent With Patient Time: Total time managing care of this patient today ____ minutes.
[2024-05-11 10:46] VITALS: BP 109/69; PULSE 87; RESP 14; TEMP 36.6; O2SAT 97
[2024-05-11 11:01] VITALS: BP 127/84; PULSE 78; RESP 16; TEMP 36.6; O2SAT 97
--- NOTE | 2024-05-11 13:16 | OP_ITS ---
DATE OF SERVICE: 05/11/2024 SURGEON: Kiran Carlos MD INDICATIONS: Colon cancer screening. PREOPERATIVE DIAGNOSIS: POSTOPERATIVE DIAGNOSIS: PROCEDURE PERFORMED: Colonoscopy to the terminal ileum with biopsy. ESTIMATED BLOOD LOSS: COMPLICATIONS: ANESTHESIA: Monitored anesthesia care. ASSISTANTS: SPECIMENS: DESCRIPTION OF PROCEDURE: A history and physical was performed. The risks and benefits of the procedure were explained to the patient. Informed consent was obtained. The patient was placed in the left lateral decubitus position. A digital rectal exam was performed and was found to be normal. The Olympus pediatric video colonoscope was introduced into the rectum and advanced to the cecum. The cecum was identified by transillumination, palpation, and identification of ileocecal valve. Examination was performed. The scope was removed. He tolerated the procedure well and was returned to the recovery area in stable condition. FINDINGS: The terminal ileum was examined and appeared normal. The visualized colonic mucosa was normal. The quality of the prep was good. There was a single polyp measuring less than 5 mm identified in the right colon. This was removed with biopsy forceps. No other polyps were identified. Retroflexed examination was normal. There were small internal hemorrhoids. IMPRESSION: Colon polyp. RECOMMENDATION: Follow up the biopsy results. MD DUC [facility]/TIML / [id number]
== END 2024-05-11 11:30 | disposition home or self-care (01) ==
PROVIDERS: PCP Internal Medicine Medical Oncology; Visit Provider Internal Medicine Gastroenterology
PROC: 0DJD8ZZ Inspection of Lower Intestinal Tract, Via Natural or Artificial Opening Endoscopic (ICD-10-PCS; CPT 45378; principal; 2024-05-11 09:50)
DX: Z12.11 Encounter for screening for malignant neoplasm of colon (principal); D12.2 Benign neoplasm of ascending colon; J45.909 Unspecified asthma, uncomplicated; G47.33 Obstructive sleep apnea (adult) (pediatric)
CPT/HCPCS: 45380; 88305; J2250; J2704

== ENCOUNTER 2024-07-23 10:41 | Outpatient (AMB) | payer MEDICAID, SELFPAY ==
[2024-07-23 10:48] VITALS: BP 112/80; PULSE 82; O2SAT 97; BMI 44.7
--- NOTE | 2024-07-23 10:48 | MHC.OFFVIS ---
Vital Signs 07/23/24 10:48 Height 5 ft 11 in Weight 320 lb 12.361 oz BMI 44.7 BP 112/80 Blood Pressure Location Lt brachial Position Sitting Pulse 82 Pulse Source Pulse Oximeter Pulse Oximetry (%) 97 Oxygen Delivery Method Room Air Intake Visit Reasons: Obstructive sleep apnea Intake Note: pt is here for follow up and feeling good today Primary Education Professor Required: No Allergies No Known Allergies [No Known Allergies*] Allergy (Verified 07/23/24 11:02) Medication List - Last Reconciled 07/23/24 by Ambrocio Becker MD bupropion HCl XL 300 mg PO DAILY cholecalciferol (vitamin D3) (Vitamin D3) 125 mcg PO DAILY tadalafil 5 mg PO DAILY Do you need a note to return to daycare/school/sports/work: No HPI HPI Obstructive sleep apnea: Details: THIS 49 YEARS OLD GENTLEMAN IS HERE FOR FOLLOW-UP FOR HI.S SLEEP APNEA HE USES CPAP EVERY NIGHT AND SLEEPS WELL. IN FACT HE HAS BEEN SLEEPING UP TO 9 HOURS PER NIGHT WITH THE CPAP ON. HIS PRESSURE WAS KEPT ,AT 10 CM AND IT IS WORKING OKAY NOW HE DOES NOT HAVE ANY SNORING. DIET IS NOT CONTROLLED AND HE IS NOT DOING MUCH EXERCISE, SO HIS WEIGHT HAS NOT CHANGED. HE IS BEING TREATED FOR CHRONIC DEPRESSIVE DISORDER . HE IS STAYING MOSTLY IN THE HOUSE AND NOT WALKING OR DOING ANY EXERCISE. [facility], [facility] Medical History Asthma Morbid obesity KLARISSA on CPAP Vitamin B12 deficiency Vitamin D deficiency Intestinal malabsorption following gastrectomy Surgical History Hx of laparoscopic gastric banding S/P laparoscopic sleeve gastrectomy Family History Father No problems noted. Mother Sleep apnea Social History Alcohol intake: current Alcohol intake frequency: holidays/special occasions only Patient Tobacco Use Status: Never used Tobacco Years Smoked: 1 year Review of Systems Const All systems reviewed & are unremarkable except as noted in HPI and below Denies snoring Eyes Reports no additional complaints ENT Reports no additional complaints Card Denies chest pain, Denies irregular heart rhythm, Denies leg edema and Denies dyspnea on exertion Resp Denies cough, Denies dyspnea on exertion, Denies snoring and Denies wheezing GI Reports as per HPI Reports no additional complaints Musc Reports no additional complaints Skin/Breast Reports system reviewed and no additional complaints, except as documented Neuro Reports no additional complaints Psych Reports no additional complaints Aller/Immun Denies wheezing Physical Exam Const General: healthy appearing, comfortable, no acute distress, alert and awake Orientation/consciousness: patient oriented x3 HEENT Head: Yes normal to inspection General nose exam: No nasal polyps present and No nasal discharge present Face and sinus: Yes sinuses nontender Mouth: oropharynx normal Throat: Yes posterior oropharynx normal Eyes General: appearance normal, both eyes and all related structures Neck Neck: Yes normal visual inspection, Yes no lymphadenopathy, Yes trachea midline and Yes no JVD Thyroid: Thyroid normal Chest Chest palpation & inspection: normal inspection of the chest, normal palpation of entire chest wall and no tenderness Resp Effort & Inspection: normal respiratory effort Auscultation: clear to auscultation bilaterally, no crackles and no wheezes Percussion: percussion normal Cardio Palpation: normal PMI Rate: regular rate Rhythm: regular rhythm Heart sounds: no gallops and no murmurs Peripheral pulses: Peripheral pulses 2+ throughout GI Palpation (GI): Soft to palpation, nontender, No hepatosplenomegaly present and no masses Auscultation: normal bowel sounds Back/Spine/Pelvis Thoracic/Lumbar Spine: thoracic and lumbar spine normal to inspection Skin General skin exam: no rashes or lesions noted Neuro General: patient oriented x3 and no focal motor deficits Cranial nerves: Yes CN's II-XII intact bilaterally Extrem General: Yes normal to inspection, Yes no clubbing, cyanosis or edema and Yes no calf tenderness Psych Appearance: grossly normal and well kempt Speech and movement: Normal speech and movement present Results Reviewed Results Reviewed: COMPLIANCE REPORT FOR THE LAST 30 NIGHTS SHOWS THAT HE HAS USED 30/30 NIGHTS, 100%. AVERAGE USE IT PER NIGHT. 9 HOURS 9 MINUTES WHICH IS EXCELLENT, PRESS URE 10 CM THERE IS N.O AIR LEAK AND RESIDUAL AHI ONLY 2.7 Assessment & Plan Assessment & Plan (1) Morbid obesity: Comment: THIS GENTLEMAN HAS HISTORY OF BARIATRIC SURGERY IN THE PAST. INITIALLY HE DID LOSE SOME WEIGHT. NOW HIS WEIGHT IS AT A STANDSTILL. 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 (2) KLARISSA on CPAP: Comment: HE HAS LONGSTANDING HISTORY OF OBSTRUCTIVE SLEEP APNEA. HE HAS BEEN A REGULAR USER OF CPAP WITH GOOD RESULTS. CURRENTLY HE HAS NO PROBLEMS WITH THE USE OF CPAP AND HE IS NOT AWARE OF ANY EXCESSIVE SNORING. THE COMPLIANCE REPORT IS GOOD, WITH RESIDUAL AHI OF 2.7 Code(s): G47.33 - Obstructive sleep apnea (adult) (pediatric); Z99.89 - Dependence on other enabling machines and devices Category: Medical Plan: COMMENDED FOR GOOD COMPLIAN.CE ENCOURAGED TO KEEP ON USING THE CPAP WITH CURRENT PRESSURE OF 10 CM, AND FULLFACE MASK. Coding Level of Care Code Est Pt Level 3 (85373) Diagnoses Morbid obesity E66.01 KLARISSA on CPAP G47.33; Z99.89
== END 2024-07-23 11:02 | disposition home or self-care (01) ==
PROVIDERS: PCP Internal Medicine Medical Oncology; Visit Provider Internal Medicine
DX: E66.01 Morbid (severe) obesity due to excess calories (principal); G47.33 Obstructive sleep apnea (adult) (pediatric); Z99.89 Dependence on other enabling machines and devices
CPT/HCPCS: 99213

== ENCOUNTER → 2024-07-23 10:41 | Outpatient (BNVA) | payer MEDICAID, SELFPAY | PROVIDERS: PCP Internal Medicine Medical Oncology; Visit Provider Internal Medicine | DX: G47.33 Obstructive sleep apnea (adult) (pediatric) (principal); E66.01 Morbid (severe) obesity due to excess calories; Z68.41 Body mass index [BMI] 40.0-44.9, adult; Z99.89 Dependence on other enabling machines and devices | CPT/HCPCS: 99212 ==

== ENCOUNTER 2024-08-13 09:09 | Outpatient (REF) | payer MEDICAID, SELFPAY ==
[2024-08-13 09:26] LABS: MANUAL DIFF FLAG NO
[2024-08-13 09:48] LABS: Basophils Percent Auto 0.4 % (0-2); Eosinophils Absolute Auto 0.1 X10*3/uL (0.0-0.4); Eosinophils Percent Auto 0.9 % (0-4); Hematocrit 44.6 % (42.0-52.0); Hemoglobin 15.5 g/dl (14.0-18.0); Imm Gran Abs Auto 0.03 X10*3/uL (0.00-0.03); Imm Gran Pct Auto 0.5 % (0.0-0.4); Lymphocytes Absolute Auto 1.8 X10*3/uL (1.2-4.9); Lymphocytes Percent Auto 31.3 % (20-40); Mean Corpuscular HGB Conc 34.8 g/dl (31.0-36.0); Mean Corpuscular Hemoglobin 29.6 pg (27.0-33.0); Mean Corpuscular Volume 85.3 fL (80.0-98.0); Mean Platelet Volume 9.9 fL (9.4-12.4); Monocytes Absolute Auto 0.5 X10*3/uL (0.1-1.2); Monocytes Percent Auto 9.3 % (2-11); Neutrophils Absolute Auto 3.3 x10*3/uL (2.0-8.3); Neutrophils Percent Auto 57.6 % (45-73); Platelet Count 186 X10*3/uL (160-400); Red Blood Count 5.23 X10*6/uL (4.60-5.80); Red Cell Distribution Width 13.2 % (11.0-16.0); White Blood Count 5.7 X10*3/uL (4.8-10.8)
[2024-08-13 10:34] LABS: Alanine Aminotransferase 25 U/L (0-40); Albumin Level 4.1 g/dL (3.5-5.0); Alkaline Phosphatase 100 U/L (39-117); Anion Gap 12 (12-20); Aspartate Amino Transferase 23 U/L (5-37); Bilirubin Total 0.8 mg/dL (0.0-1.0); Blood Urea Nitrogen 11 mg/dL (9-16); Calcium 9.5 mg/dL (8.4-10.2); Carbon Dioxide 25 mmol/L (22-29); Chloride 108 mmol/L (96-108); Cholesterol 151 mg/dL (<200); Estimated Glomerular Filt Rate > 60; Glucose Fasting 96 mg/dL (60-99); HDL Cholesterol 40 mg/dL (>40); LDL Cholesterol Calculated 74 mg/dL (<100); Potassium 3.9 mmol/L (3.3-5.1); Sodium 141 mmol/L (135-145); Triglycerides 186 mg/dL (<150)
[2024-08-13 10:40] LABS: Prostate Specific Antigen 0.38 ng/mL (<0.05-4.0)
== END 2024-08-13 09:10 | disposition home or self-care (01) ==
LOC: HO.LAB 09:09
PROVIDERS: PCP Internal Medicine Medical Oncology; Visit Provider Internal Medicine Medical Oncology
DX: G47.33 Obstructive sleep apnea (adult) (pediatric) (principal); E66.9 Obesity, unspecified; N40.0 Benign prostatic hyperplasia without lower urinary tract symptoms
CPT/HCPCS: 36415; 80053; 80061; 84153; 85025

== ENCOUNTER 2024-12-19 09:04 | Outpatient (REF) | payer OTHER, SELFPAY ==
[2024-12-19 09:24] LABS: MANUAL DIFF FLAG NO
--- OUTSIDE RECORDS SUMMARY | 2024-12-19 09:28 | XMS_ITS | Clinical Summary ---
Author Organization [facility] Address [address] [place] [id number] Care Team Providers Care Interpersonal Communications Professor Name Role Phone Unavailable Primary Care Provider Unavailabl e Social History Tobacco Use Types Packs/Day Years Used Date Smoking Tobacco: Never Assessed Sex and Gender Information Value Date Recorded Sex Assigned at Not on file Gender Identity Not on file Sexual Orientation Not on file Plan of Treatment Health Maintenance Due Date Last Done Comments DTaP,Tdap,and Td Vaccines (1 - Tdap) 1996 Hepatitis B Vaccines (1 of 3 - 19+ 3-dose series) 1996 COVID-19 Vaccine (2023-2 5 season) 2024 Influenza Vaccine (#1) 2024 HIB Vaccines Aged Out No longer eligi ble based on patient's age to complete this topic HPV Vaccines Aged Out No longer eligi ble based on patient's age to complete this topic Hepatitis A Vaccines Aged Out No long er eligible based on patient's age to complete this topic IPV Vaccines Aged Out No longer eligi ble based on patient's age to complete this topic MMR Vaccines Aged Out No longer eligi ble based on patient's age to complete this topic Meningococcal ACWY Vaccine Aged Out N o longer eligible based on patient's age to complete this topic Pneumococcal Vaccine: Pediat rics (0 to 5 Years) and At-Risk Patients (6 to 64 Years) Aged Out No longer eligible b ased on patient's age to complete this topic RSV Immunization Patients Un yeny 20 months Aged Out No longer eligible b ased on patient's age to complete this topic Varicella Vaccines Aged Out No longer eligible based on patient's age to complete this topic
[2024-12-19 09:58] LABS: Basophils Percent Auto 0.6 % (0-2); Eosinophils Absolute Auto 0.1 X10*3/uL (0.0-0.4); Eosinophils Percent Auto 1.1 % (0-4); Hematocrit 45.1 % (42.0-52.0); Hemoglobin 15.9 g/dl (14.0-18.0); Imm Gran Abs Auto 0.02 X10*3/uL (0.00-0.03); Imm Gran Pct Auto 0.4 % (0.0-0.4); Lymphocytes Absolute Auto 1.4 X10*3/uL (1.2-4.9); Lymphocytes Percent Auto 26.5 % (20-40); Mean Corpuscular HGB Conc 35.3 g/dl (31.0-36.0); Mean Corpuscular Hemoglobin 29.9 pg (27.0-33.0); Mean Corpuscular Volume 84.8 fL (80.0-98.0); Mean Platelet Volume 9.5 fL (9.4-12.4); Monocytes Absolute Auto 0.5 X10*3/uL (0.1-1.2); Monocytes Percent Auto 9.9 % (2-11); Neutrophils Absolute Auto 3.2 x10*3/uL (2.0-8.3); Neutrophils Percent Auto 61.5 % (45-73); Platelet Count 189 X10*3/uL (160-400); Red Blood Count 5.32 X10*6/uL (4.60-5.80); Red Cell Distribution Width 12.9 % (11.0-16.0); White Blood Count 5.3 X10*3/uL (4.8-10.8)
[2024-12-19 10:22] LABS: Alanine Aminotransferase 37 U/L (0-40); Albumin Level 4.4 g/dL (3.5-5.0); Alkaline Phosphatase 112 U/L (39-117); Anion Gap 8 (12-20); Aspartate Amino Transferase 32 U/L (5-37); Bilirubin Total 0.9 mg/dL (0.0-1.0); Blood Urea Nitrogen 12 mg/dL (9-16); Calcium 9.8 mg/dL (8.4-10.2); Carbon Dioxide 26 mmol/L (22-29); Chloride 110 mmol/L (96-108); Cholesterol 142 mg/dL (<200); Estimated Glomerular Filt Rate > 60; Glucose Fasting 82 mg/dL (60-99); HDL Cholesterol 35 mg/dL (>40); LDL Cholesterol Calculated 69 mg/dL (<100); Sodium 140 mmol/L (135-145); Total Protein 7.6 g/dL (6.5-8.0); Triglycerides 193 mg/dL (<150)
[2024-12-19 10:48] LABS: Prostate Specific Antigen 0.31 ng/mL (<0.05-4.0)
== END 2024-12-19 09:05 | disposition home or self-care (01) ==
LOC: HO.LAB 09:04
PROVIDERS: PCP Internal Medicine Medical Oncology; Visit Provider Internal Medicine Medical Oncology
DX: E66.9 Obesity, unspecified (principal); N40.0 Benign prostatic hyperplasia without lower urinary tract symptoms
CPT/HCPCS: 36415; 80053; 80061; 84153; 85025

== ENCOUNTER 2025-01-16 09:26 | Outpatient (AMB) | payer OTHER, SELFPAY ==
--- NOTE | 2025-01-16 09:34 | MHC.OFFVIS ---
Vital Signs 01/16/25 09:37 Height 5 ft 11 in Weight 297 lb 9.985 oz BMI 41.5 BP 102/70 Blood Pressure Location Lt brachial Position Sitting Pulse 84 Pulse Source Pulse Oximeter Pulse Oximetry (%) 94 Oxygen Delivery Method Room Air Intake Visit Reasons: Obstructive sleep apnea Intake Note: pt is here for follow up and states cpap is going fine, but has long covid brain fog happening and fatigue by afternoon. Lithographic Photographer Required: No Allergies No Known Allergies [No Known Allergies*] Allergy (Verified 01/16/25 09:52) Medication List - Last Reconciled 01/16/25 by Ambrocio Becker MD bupropion HCl XL 300 mg PO DAILY cholecalciferol (vitamin D3) (Vitamin D3) 125 mcg PO DAILY sertraline 25 mg PO DAILY tadalafil 5 mg PO DAILY tirzepatide (weight loss) (Zepbound) 5 mg subcut QWEEK Do you need a note to return to daycare/school/sports/work: No HPI HPI Obstructive sleep apnea: Details: 49 years old very pleasant gentleman is a case of morbid obesity and obstructive sleep apnea. He is here for 6 months follow-up. He has been using CPAP every night faithfully with very good effect, sleeping up to 9 hours per night. He denies any issues with the mask or with the CPAP device. He had COVID infection in August treated right at home with a course of Paxlovid. After that he has had some brain fog and increased depression, and remained homebound. Has not been doing. Much exercise He is on Zepbound injections Q 1 week and is starting to lose weight. [facility] Medical History Asthma Morbid obesity KLARISSA on CPAP Vitamin B12 deficiency Vitamin D deficiency Intestinal malabsorption following gastrectomy Surgical History Hx of laparoscopic gastric banding S/P laparoscopic sleeve gastrectomy Family History Father No problems noted. Mother Sleep apnea Social History Alcohol intake: current Alcohol intake frequency: holidays/special occasions only Patient Tobacco Use Status: Never used Tobacco Years Smoked: 1 year Review of Systems Const All systems reviewed & are unremarkable except as noted in HPI and below Denies snoring Eyes Reports no additional complaints ENT Reports no additional complaints Card Denies chest pain, Denies irregular heart rhythm, Denies leg edema and Denies dyspnea on exertion Resp Denies cough, Denies dyspnea on exertion, Denies snoring and Denies wheezing GI Reports as per HPI Reports no additional complaints Musc Reports no additional complaints Skin/Breast Reports system reviewed and no additional complaints, except as documented Neuro Reports no additional complaints Psych Reports no additional complaints Aller/Immun Denies wheezing Physical Exam Const General: healthy appearing, comfortable, no acute distress, alert and awake Orientation/consciousness: patient oriented x3 HEENT Head: Yes normal to inspection General nose exam: No nasal polyps present and No nasal discharge present Face and sinus: Yes sinuses nontender Mouth: oropharynx normal Throat: Yes posterior oropharynx normal Eyes General: appearance normal, both eyes and all related structures Neck Neck: Yes normal visual inspection, Yes no lymphadenopathy, Yes trachea midline and Yes no JVD Thyroid: Thyroid normal Chest Chest palpation & inspection: normal inspection of the chest, normal palpation of entire chest wall and no tenderness Resp Effort & Inspection: normal respiratory effort Auscultation: clear to auscultation bilaterally, no crackles and no wheezes Percussion: percussion normal Cardio Palpation: normal PMI Rate: regular rate Rhythm: regular rhythm Heart sounds: no gallops and no murmurs Peripheral pulses: Peripheral pulses 2+ throughout GI Palpation (GI): Soft to palpation, nontender, No hepatosplenomegaly present and no masses Auscultation: normal bowel sounds Back/Spine/Pelvis Thoracic/Lumbar Spine: thoracic and lumbar spine normal to inspection Skin General skin exam: no rashes or lesions noted Neuro General: patient oriented x3 and no focal motor deficits Cranial nerves: Yes CN's II-XII intact bilaterally Extrem General: Yes normal to inspection, Yes no clubbing, cyanosis or edema and Yes no calf tenderness Psych Appearance: grossly normal and well kempt Speech and movement: Normal speech and movement present Results Reviewed Results Reviewed: Compliance for the last 30 nights is reviewed. He has used 30/30 nights,. 100% Average use it per night 9 hours 50 minutes Residual AHI 4.0 due to presence of some apneas Assessment & Plan Assessment & Plan (1) Morbid obesity: Comment: THIS GENTLEMAN HAS HISTORY OF BARIATRIC SURGERY IN THE PAST. INITIALLY HE DID LOSE SOME WEIGHT. SINCE HIS LAST VISIT HE HAS LOST ABOUT 23 LB OF WEIGHT. I THINK THIS IS DUE TO ZEPBOUND INJECTIONS Code(s): E66.01 - Morbid (severe) obesity due to excess calories Category: Medical Plan: TALKED TO HIM ABOUT THE WEIGHT, ENCOURAGED HIM TO WALK ABOUT 2 MILES EVERY DAY. AND CUT DOWN THE PORTIONS OF FOOD ESPECIALLY CARBOHYDRATES. (2) KLARISSA on CPAP: Comment: HE HAS LONGSTANDING HISTORY OF OBSTRUCTIVE SLEEP APNEA. HE HAS BEEN A REGULAR USER OF CPAP WITH GOOD RESULTS. CURRENTLY HE HAS NO PROBLEMS WITH THE USE OF CPAP AND HE IS NOT AWARE OF ANY EXCESSIVE SNORING. THE COMPLIANCE REPORT IS GOOD, WITH RESIDUAL AHI OF 4. Code(s): G47.33 - Obstructive sleep apnea (adult) (pediatric); Z99.89 - Dependence on other enabling machines and devices Category: Medical Plan: COMMENDED FOR GOOD COMPLIANCE. ADVISED TO CONTINUE USING CPAP REGULARLY EVERY NIGHT. Coding Level of Care Code Est Pt Level 3 (27098) Diagnoses Morbid obesity E66.01 KLARISSA on CPAP G47.33; Z99.89
[2025-01-16 09:37] VITALS: BP 102/70; PULSE 84; O2SAT 94; BMI 41.5
--- OUTSIDE RECORDS SUMMARY | 2025-01-16 09:45 | XMS_ITS ---
Author Organization [facility] Address [address] [place] [address] Care Team Providers Care Piece Dye Worker Name Role Phone Mainor Masters MD Primary Care Provider Unavailab Kiran Gibson Jr Unavailable REASON FOR VISIT pathology Encounters Encounter Location Date Provider Diagnosis [facility] [address] [place] [address] 05/15/2024 Kiran Carlos Jr PLAN OF TREATMENT No Information
--- OUTSIDE RECORDS SUMMARY | 2025-01-16 09:46 | XMS_ITS ---
Author Organization Mainor Masters III, MD Address [address] [place] [address] Care Team Providers Care Counter Checker Name Role Phone Mainor Masters Primary Care Provider REASON FOR VISIT Zepbound Rx Medications Medication SIG (Take, Route, Fr equency, Duration) Notes Start Date End Date Status Zepbound 5 MG/0.5ML 0.5 mL Subcutaneous once a week for 4 weeks for 30 days 12/24/2024 02/22/2025 Act lily Social History Sex Assigned At : Social History Observation Description Sex Assigned At Male Encounters Encounter Location Date Provider Diagnosis Mainor Masters III, MD [address] [place] [address] [place] [address] 12/24/2024 Mainor Masters Plan Of Treatment Medication Medication Name Sig Start Date Stop Date Notes Zepbound 5 MG/0.5ML 0.5 mL Subcutaneous once a week for 4 weeks for 30 days 12/24/2024 02/22/2025 Zepbound 2.5 MG/0.5ML 0.5 mL Subcutaneou s use once a week for 4 weeks 11/14/2024 01/13/2025 DX: Obesity E66. 01 Next Appt Details Provider Name:Mainor Masters, 02/25/2025 03:15:00 PM, [address] [place] [address] [place], [address], Provider Name:Mainor Masters, 12/30/2025 02:00:00 PM, [address] [place] [address] [place], [address], Progress Notes * Varun GTZDOB:1975 (49 yo M)Acc No.[id number]:12/24/2024 Patient:?Varun GTZ :1975???Age:49 Y???Sex:Male Address:[address] [place], [place] [address], [address] * Refills? Start Zepbound Solution Auto-injector, 5 MG/0.5ML, Subcutaneous, 4, 0.5 mL, once a week for 4 weeks, 30 days, Refills=1 Stop Zepbound Solution Auto-injector, 2.5 MG/0.5ML, Subcutaneous, 0.5 mL, use once a week for 4 weeks * true * Date:? Generated for Felisha toure/Marianne/Apsmitting on:?01/16/2025 09:46 AM EST
--- OUTSIDE RECORDS SUMMARY | 2025-01-16 09:46 | XMS_ITS ---
Author Organization Mainor Masters III, MD Address [address] [place] [address] Care Team Providers Care Vibration Technician Name Role Phone Mainor Masters Primary Care Provider Allergies Allergen (clinical drug ingredient) Drug/Non Drug Allergy documented on EMR Reaction Allergy Type Onset Date Status No Known Drug Allergy Unknown Drug Allergy Active Results Component Value Reference Range Notes URINE DIP STICK Reviewed date:12/26/2024 02:06:27 PM Interpretation: Performing Lab: Notes/Report: SG 1.020 1.005 - 1.025 pH 6.0 5.0 - 9.0 NOE Neg Negative - NIT Neg Negative - PRO 15 Negative - Trace GLU Neg Negative - KET Neg Negative - UBG 0.2 0.1 - 1.8 LIZZETH Neg 0.2 - 1.3 BLD +++ Negative - REASON FOR VISIT Annual Exam Medications Medication SIG (Take, Route, Frequency, Duration) Notes Start Date End Date Status Vitamin D3 125 MCG (5000 UT) Oral Active Zepbound 5 MG/0.5ML 0.5 mL Subcutaneous once a week for 4 weeks 12/24/2024 Active Sertraline HCl 25 MG 1 tablet Orally Once a day Active buPROPion HCl ER (XL) 300 MG TAKE 1 TABLET BY MOUTH EVERY DAY IN THE MORNING FOR 30 DAYS Active Social History Tobacco Use: Social History Observation Description Date Details (start date - stop date) Never Smoker NA - NA Sex Assigned At : Social History Observation Description Sex Assigned At Male Tobacco Use/Smoking Question Answer Notes Patient is a nonsmoker Additional Findings: Tobacco Non-User Aggressive non-smoker Tobacco Control (Standard) Question Answer Notes Tobacco use: Nonsmoker Additional Findings: Tobacco non-user Aggressive nonsmoker AUDIT-C (Standard) Question Answer Notes Did you have a drink contain ing alcohol in the past year? Yes How often did you have six o r more drinks on one occasion in the past year? Less than monthly (1 point) How many drinks did you have on a typical day when you were drinking in the past year? 1 or 2 drinks (0 point) How often did you have a dri nk containing alcohol in the past year? Never (0 point) Points 1 Interpretation Negative Vital Signs Temperature 97.9 degrees Fahrenheit 12/26/19 25 Blood pressure systolic 132 mm Hg 12/26/19 25 Blood pressure diastolic 84 mm Hg 025 Heart Rate 99 /min 12/26/2024 Height 70 in 12/26/2024 Weight 305 lbs 12/26/2024 BMI 43.76 kg/m2 12/26/2024 Encounters Encounter Location Date Provider Diagnosis Mainor Masters III, MD [address] [place] [address] [facility] [place] [address] 12/26/2024 Mainor Masters Seasonal allergies J30.2 ; Obstructive sleep apnea G47.33 ; History of depression Z86.59 ; BPH (benign prostatic hyperplasia) N40.0 and Morbid obesity E66.01 Assessments Encounter Date Diagnosis (ICD Code) Assessment Notes Treatment Notes Treatment Clinical Notes 12/26/2024 Seasonal allergies (ICD-10 - J30.2) He says he had some difficulty with allergies during pollen season but that is now resolved. He feels well. 12/26/2024 Obstructive sleep apnea (ICD-10 - G47.33) He will continue to use his CPAP machine at the current setting. 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 He wants to continue on the current dose of bupropion. We discussed strategies by which she could cope with being unemployed, which included beginning a search for a new job and making new connections. 12/26/2024 BPH (benign prostatic hyperplasia) (ICD-10 - N40.0) He rises from sleep once or twice a night to urinate. We have discussed several lifestyle modifications he could make to relieve nocturia. 12/26/2024 Morbid obesity (ICD-10 - E66.01) His body mass index is 43 after losing 4 pounds. We made a plan to lose weight at a rate of one half of a pound per week through diet restricted in fat calories and sodium combined with regular physical activity. He will continue his antidepressants. We began a discussion of the use of injected semaglutide. He is going to research this medication and we will discuss it further on his next visit. He is going to see if his insurance will cover. Plan Of Treatment Medication Medication Name Sig Start Date Stop Date Notes Vitamin D3 125 MCG (5000 UT) Oral Zepbound 5 MG/0.5ML 0.5 mL Subcutaneous once a week for 4 weeks 12/24/2024 Sertraline HCl 25 MG 1 tablet Orally Once a day 08/16/2024 buPROPion HCl ER (XL) 300 MG TAKE 1 TABL ET BY MOUTH EVERY DAY IN THE MORNING FOR 30 DAYS Next Appt Details Follow Up: Spring, Reason: R egular check-up Provider Name:Mainor Masters, 02/25/2025 03:15:00 PM, [address] [place] [address] [address], [place], [id number], Provider Name:Mainor Masters, 12/30/2025 02:00:00 PM, [address] [place] [address] [address], [place], [address], Progress Notes * Varun GTZDOB:1975 (49 yo M)Acc No.[id number]:12/26/2024 Progress Notes Patient:?TRESA Varun Provider:?Mainor Masters MD :1975???Age:49 Y???Sex:Male Nilesh e:12/26/2024 Address:[address] [place] [address] [place] [id number] Subjective: * Chief Complaints: * ???Annual Exam * HPI: ???Depression Screening:?PHQ-9?Little interest or pleasure in doing things?Several days ?Feeling down, depressed, or hopeless?Several days ?Trouble falling or staying asleep, or sleeping too much?Nearly every day ?Feeling tired or having little energy?More than half the days ?Poor appetite or overeating?Several days ?Feeling bad about yourself or that you are a failure, or have let yourself or your family down?More than half the days ?Trouble concentrating on things, such as reading the newspaper or watching television?Not at all ?Moving or speaking so slowly that other people could have noticed; or the opposite, being so fidgety or restless that you have been moving around a lot more than usual?Not at all ?Thoughts that you would be better off or of hurting yourself in some way?Not at all ?Total Score?10 ?Interpretation?Moderate Depression ???COVID-19 Screening:?Questions?Have you had any new onset fever, chills, cough, congestion, sore throat, shortness of breath, muscle aches??No ???SDOH Questions:?SDOH Questions?In the past year have you been worried about losing your housing??No ?In the past year have you or any family members you live with been unable to get any of the following when it was really needed? Check all that apply:?None ???:? The 49-year-old male patient has been experiencing long COVID symptoms, including low energy levels and increased sleep duration. He has also been dealing with sleep apnea for several years and uses a CPAP machine. He has lost 18 lbs since July and is currently on a weight loss medication. He also reported a rash on his arm, which he has been treating with an antifungal cream. The patient is also on bupropion, sertraline, and vitamin D. Blood Sugar Level is 82. * ROS:?General/Constitutional:?pain?only normal aches and pains.?Chills?denies.?Fatigue?admits.?Fever?denies.?Allergy/Immunology:?Admits?Rash,?Primarily on the upper extremities above and below the elbows, , patchy, flaking skin, flaking skin without vesicles.b.?ENT:?Decreased hearing?denies.?Respiratory:?Cough?denies.?Cardiovascular:?Chest pain with exertion?denies.?Dyspnea on exertion?denies.?Shortness of breath?with exertion.?Gastrointestinal:?Constipation?denies.?Decreased appetite?that is associated with weight loss.?Diarrhea?denies.?Heartburn?denies.?Nausea?denies.?Rectal bleeding?denies.?Vomiting?denies.?Hematology:?bruising?denies.?petechiae?denies.?Swollen glands?none have been noted.?Genitourinary:?Frequent urination?once a night.?Musculoskeletal:?Muscle aches?denies.?Painful joints?denies.?Sciatica?denies.?Weakness?denies.?Skin:?Itching?denies.?Rash?denies.?Skin lesion(s)?denies.?Neurologic:?Difficulty speaking?denies.?Dizziness?denies.?Headache?denies.?Low back pain?denies.?Psychiatric:?Depressed mood?which is mild.? * Medical History:? * Surgical History:?gastric la paroscopic banding, bariatric surgery 2012vertical gastric sleeve 05/2020No history * Hospitalization/Major Diagno stic Procedure:?No history * Family History:?Father: dece ased 41 yrs.?Mother: alive 67 yrs.? His mother is alive and well. Father at the age of 41 of unknown causes. He has no siblings. No children. There is no family history of cancer diabetes or heart disease. * Social History:?Tobacco Use:?Tobacco Use/Smoking?Patient is a?nonsmoker ?Additional Findings: Tobacco Non-User?Aggressive non-smoker ?Tobacco Control (Standard)?Tobacco use:?Nonsmoker ?Additional Findings: Tobacco non-user?Aggressive nonsmoker ???Drugs/Alcohol:?Drugs?Have you used drugs other than those for medical reasons in the past 12 months??No ???Drug/Alcohol:?AUDIT-C (Standard)?Did you have a drink containing alcohol in the past year??Yes ?How often did you have six or more drinks on one occasion in the past year??Less than monthly (1 point) ?How many drinks did you have on a typical day when you were drinking in the past year??1 or 2 drinks (0 point) ?How often did you have a drink containing alcohol in the past year??Never (0 point) ?Points?1 ?Interpretation?Negative ???He was born locally. He is unmarried and has no children. He lives with a partner, Ren, for the last 7 years. 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 He has no toxic exposures. The patient has been working on changing his relationship with food and has been considering weight loss medications. He has been helping his mother move back from [place]. * Medications:?TakingVitamin D 3 125 MCG (5000 UT) Capsule Oral buPROPion HCl ER (XL) 300 MG Tablet Extended Release 24 Hour TAKE 1 TABLET BY MOUTH EVERY DAY IN THE MORNING FOR 30 DAYS Sertraline HCl 25 MG Tablet 1 tablet Orally Once a day Zepbound 5 MG/0.5ML Solution Auto-injector 0.5 mL Subcutaneous once a week for 4 weeks , stop date 02/22/2025Medication List reviewed and reconciled with the patientTaking Vitamin D3 125 MCG (5000 UT) Capsule Oral Taking buPROPion HCl ER (XL) 300 MG Tablet Extended Release 24 Hour TAKE 1 TABLET BY MOUTH EVERY DAY IN THE MORNING FOR 30 DAYS Taking Sertraline HCl 25 MG Tablet 1 tablet Orally Once a day Taking Zepbound 5 MG/0.5ML Solution Auto-injector 0.5 mL Subcutaneous once a week for 4 weeks , stop date 02/22/2025Medication List reviewed and reconciled with the patient * Allergies:?No Known Drug All ergyno[Allergies Verified] Objective: * Vitals:?Ht: 70, Wt: 305, BMI :43.76, BP: 132/84, HR: 99, Temp: 97.9, Wt-k.35. * ???Past Orders: Lab:[facility] * Collection Date 12/19/2024 08/13/2024 06/10/2021 Collection Time 09:23 AM 09:26 AM 08:20 AM Order Date 12/19/2024 08/13/2024 06/10/2021 Sodium 140 (Ref Range: 135-145 mmol/L) 141 (Ref Range: 135-145 mmol/L) 140 (Ref Range: 135-145 mmol/L) Bilirubin Total 0.9 (Ref Range: 0.0-1.0 mg/dL) 0.8 (Ref Range: 0.0-1.0 mg/dL) 1.0 (Ref Range: 0.0-1.0 mg/dL) Aspartate Amino Transferase 32 (Ref Range: 5-37 U/L) 23 (Ref Range: 5-37 U/L) 19 (Ref Range: 5-37 U/L) Alanine Aminotransferase 37 (Ref Range: 0-40 U/L) 25 (Ref Range: 0-40 U/L) 15 (Ref Range: 0-40 U/L) Total Protein 7.6 (Ref Range: 6.5-8.0 g/dL) 7.0 (Ref Range: 6.5-8.0 g/dL) 7.1 (Ref Range: 6.5-8.0 g/dL) Albumin Level 4.4 (Ref Range: 3.5-5.0 g/dL) 4.1 (Ref Range: 3.5-5.0 g/dL) 4.3 (Ref Range: 3.5-5.0 g/dL) Alkaline Phosphatase 112 (Ref Range: 39-117 U/L) 100 (Ref Range: 39-117 U/L) 107 (Ref Range: 39-117 U/L) Potassium 4.0 (Ref Range: 3.3-5.1 mmol/L) 3.9 (Ref Range: 3.3-5.1 mmol/L) 4.5 (Ref Range: 3.3-5.1 mmol/L) Chloride 110?H (Ref Range: 96-108 mmol/L) 108 (Ref Range: 96-108 mmol/L) 107 (Ref Range: 96-108 mmol/L) Carbon Dioxide 26 (Ref Range: 22-29 mmol/L) 25 (Ref Range: 22-29 mmol/L) 26 (Ref Range: 22-29 mmol/L) Anion Gap 8?L (Ref Range: 12-20) 12 (Ref Range: 12-20) 12 (Ref Range: 12-20) Blood Urea Nitrogen 12 (Ref Range: 9-16 mg/dL) 11 (Ref Range: 9-16 mg/dL) 17?H (Ref Range: 9-16 mg/dL) Creatinine 1.18 (Ref Range: 0.5-1.4 mg/dL) 1.08 (Ref Range: 0.5-1.4 mg/dL) 0.95 (Ref Range: 0.5-1.4 mg/dL) Estimated Glomerular Filt Rate > 60 > 60 > 60 Glucose Fasting 82 (Ref Range: 60-99 mg/dL) 96 (Ref Range: 60-99 mg/dL) 90 (Ref Range: 60-99 mg/dL) Calcium 9.8 (Ref Range: 8.4-10.2 mg/dL) 9.5 (Ref Range: 8.4-10.2 mg/dL) 9.5 (Ref Range: 8.4-10.2 mg/dL) * Lab:Lipid Panel * Collection Date 12/19/2024 08/13/2024 02/09/2022 Collection Time 09:23 AM 09:26 AM 09:50 AM Order Date 12/19/2024 08/13/2024 02/09/2022 Triglycerides 193?H (Ref Range: <150 mg/dL) 186?H (Ref Range: <150 mg/dL) 169 (Ref Range: mg/dL) Cholesterol 142 (Ref Range: <200 mg/dL) 151 (Ref Range: <200 mg/dL) 131 (Ref Range: mg/dL) LDL Cholesterol Calculated 69 (Ref Range: <100 mg/dL) 74 (Ref Range: <100 mg/dL) 56 (Ref Range: mg/dl) HDL Cholesterol 35?L (Ref Range: >40 mg/dL) 40?L (Ref Range: >40 mg/dL) 42 (Ref Range: mg/dL) * Lab:Prostate Specific Antige n * Collection Date 12/19/2024 08/13/2024 Collection Time 09:23 AM 09:26 AM Order Date 12/19/2024 08/13/2024 Prostate Specific Antigen 0.31 (Ref Range: <0.05-4.0 ng/mL) 0.38 (Ref Range: <0.05-4.0 ng/mL) * Lab:Complete Blood Count Aut o Diff * Collection Date 12/19/2024 08/13/2024 02/09/2022 Collection Time 09:23 AM 09:26 AM 09:50 AM Order Date 12/19/2024 08/13/2024 02/09/2022 White Blood Count 5.3 (Ref Range: 4.8-10.8 X10*3/uL) 5.7 (Ref Range: 4.8-10.8 X10*3/uL) 5.3 (Ref Range: 4.8-10.8 X10*3/uL) Red Blood Count 5.32 (Ref Range: 4.60-5.80 X10*6/uL) 5.23 (Ref Range: 4.60-5.80 X10*6/uL) 5.21 (Ref Range: 4.60-5.80 X10*6/uL) Hemoglobin 15.9 (Ref Range: 14.0-18.0 g/dl) 15.5 (Ref Range: 14.0-18.0 g/dl) 15.2 (Ref Range: 14.0-18.0 g/dl) Hematocrit 45.1 (Ref Range: 42.0-52.0 %) 44.6 (Ref Range: 42.0-52.0 %) 45.7 (Ref Range: 42.0-52.0 %) Mean Corpuscular Volume 84.8 (Ref Range: 80.0-98.0 fL) 85.3 (Ref Range: 80.0-98.0 fL) 87.7 (Ref Range: 80.0-98.0 fL) Mean Corpuscular Hemoglobin 29.9 (Ref Range: 27.0-33.0 pg) 29.6 (Ref Range: 27.0-33.0 pg) 29.2 (Ref Range: 27.0-33.0 pg) Mean Corpuscular HGB Conc 35.3 (Ref Range: 31.0-36.0 g/dl) 34.8 (Ref Range: 31.0-36.0 g/dl) 33.3 (Ref Range: 31.0-36.0 g/dl) Red Cell Distribution Width 12.9 (Ref Range: 11.0-16.0 %) 13.2 (Ref Range: 11.0-16.0 %) 12.4 (Ref Range: 11.0-16.0 %) Platelet Count 189 (Ref Range: 160-400 X10*3/uL) 186 (Ref Range: 160-400 X10*3/uL) 187 (Ref Range: 160-400 X10*3/uL) Mean Platelet Volume 9.5 (Ref Range: 9.4-12.4 fL) 9.9 (Ref Range: 9.4-12.4 fL) 9.3?L (Ref Range: 9.4-12.4 fL) Neutrophils Percent Auto 61.5 (Ref Range: 45-73 %) 57.6 (Ref Range: 45-73 %) 52.6 (Ref Range: 45-73 %) Imm Gran Pct Auto 0.4 (Ref Range: 0.0-0.4 %) 0.5?H (Ref Range: 0.0-0.4 %) 0.2 (Ref Range: 0.0-0.4 %) Lymphocytes Percent Auto 26.5 (Ref Range: 20-40 %) 31.3 (Ref Range: 20-40 %) 37.6 (Ref Range: 20-40 %) Monocytes Percent Auto 9.9 (Ref Range: 2-11 %) 9.3 (Ref Range: 2-11 %) 7.9 (Ref Range: 2-11 %) Eosinophils Percent Auto 1.1 (Ref Range: 0-4 %) 0.9 (Ref Range: 0-4 %) 1.3 (Ref Range: 0-4 %) Basophils Percent Auto 0.6 (Ref Range: 0-2 %) 0.4 (Ref Range: 0-2 %) 0.4 (Ref Range: 0-2 %) NRBC Pct Auto 0.0 (Ref Range: 0.0-0.2 /100WBC) 0.0 (Ref Range: 0.0-0.2 /100WBC) 0.0 (Ref Range: 0.0-0.2 /100WBC) Neutrophils Absolute Auto 3.2 (Ref Range: 2.0-8.3 x10*3/uL) 3.3 (Ref Range: 2.0-8.3 x10*3/uL) 2.8 (Ref Range: 2.0-8.3 x10*3/uL) Imm Gran Abs Auto 0.02 (Ref Range: 0.00-0.03 X10*3/uL) 0.03 (Ref Range: 0.00-0.03 X10*3/uL) 0.01 (Ref Range: 0.00-0.03 X10*3/uL) Lymphocytes Absolute Auto 1.4 (Ref Range: 1.2-4.9 X10*3/uL) 1.8 (Ref Range: 1.2-4.9 X10*3/uL) 2.0 (Ref Range: 1.2-4.9 X10*3/uL) Monocytes Absolute Auto 0.5 (Ref Range: 0.1-1.2 X10*3/uL) 0.5 (Ref Range: 0.1-1.2 X10*3/uL) 0.4 (Ref Range: 0.1-1.2 X10*3/uL) Eosinophils Absolute Auto 0.1 (Ref Range: 0.0-0.4 X10*3/uL) 0.1 (Ref Range: 0.0-0.4 X10*3/uL) 0.1 (Ref Range: 0.0-0.4 X10*3/uL) Basophils Absolute Auto 0.0 (Ref Range: 0.0-0.2 X10*3/uL) 0.0 (Ref Range: 0.0-0.2 X10*3/uL) 0.0 (Ref Range: 0.0-0.2 X10*3/uL) NRBC Abs Auto 0.000 (Ref Range: 0.0-0.012 X10*3/uL) 0.000 (Ref Range: 0.0-0.012 X10*3/uL) 0.000 (Ref Range: 0.0-0.012 X10*3/uL) * Lab:URINE DIP STICK * Collection Date 12/26/2024 12/23/2023 12/22/2022 Collection Time 09:34 AM Order Date 12/26/2024 12/23/2023 12/22/2022 SG 1.020 (Ref Range: 1.005 - 1.025) 1.010 (Ref Range: 1.005 - 1.025) 1.020 pH 6.0 (Ref Range: 5.0 - 9.0) 6.0 (Ref Range: 5.0 - 9.0) 6.0 NOE Neg (Ref Range: Negative -) Negative (Ref Range: Negative -) Neg NIT Neg (Ref Range: Negative -) Negative (Ref Range: Negative -) Neg PRO 15 (Ref Range: Negative - Trace) 15 (Ref Range: Negative - Trace) 15 GLU Neg (Ref Range: Negative -) Negative (Ref Range: Negative -) Neg KET Neg (Ref Range: Negative -) Negative (Ref Range: Negative -) Neg UBG 0.2 (Ref Range: 0.1 - 1.8) 0.2 (Ref Range: 0.1 - 1.8) 0.2 LIZZETH Neg (Ref Range: 0.2 - 1.3) Negative (Ref Range: 0.2 - 1.3) Neg BLD +++ (Ref Range: Negative -) Negative (Ref Range: Negative -) Neg Menstrating NR N/A N/A * Examination: ???General Examination: ?GENERAL APPEARANCE:?pleasant, well nourished, well developed, in no acute distress, calm and relaxed, morbidly obese, man.?HEAD:?atraumatic, normocephalic.?EYES:?eomi, perrla, anicteric, conjugate.?EARS:?normal.?NOSE:?septum intact.?ORAL CAVITY:?normal, unremarkable.?NECK/THYROID:?no jugular venous distention, no carotid bruit, thyroid normal.?LYMPH NODES:?no enlarged lymph nodes,spleen normal.?SKIN:?no suspicious lesions, anicteric.?HEART:?no clicks, gallops, murmurs, or rubs, regular rhythm, S1, S2 normal, no s3, or vascular bruits.?LUNGS:?clear to auscultation .?BREASTS:??no masses palpable bilaterally.?ABDOMEN:?bowel sounds normal, no ascites, no organomegaly, no mass.?RECTAL EXAM:?not examined.?MUSCULOSKELETAL:?extremities unremarkable, no clubbing, cyanosis or edema.?PERIPHERAL PULSES:?normal.?NEUROLOGIC:?alert and oriented, cranial nerves 2-12 grossly intact, deep tendon reflexes 2+ symmetrical, motor strength normal upper and lower extremities, sensory exam intact.?PSYCH:?alert, oriented.? Assessment: * Assessment: 1.?Seasonal allergies - J30. 2 (Primary)???Notes :He says he had some difficulty with allergies during pollen season but that is now resolved. He feels well.???2.?Obstructive sleep apnea - G47.33???Notes :He will continue to use his CPAP machine at the current setting.???3.?History of depression - Z86.59???Notes :He has had reactive depression to the loss of his job, but is coping well. He wants to continue on the current dose of bupropion. We discussed strategies by which she could cope with being unemployed, which included beginning a search for a new job and making new connections.???4.?BPH (benign prostatic hyperplasia) - N40.0???Notes :He rises from sleep once or twice a night to urinate. We have discussed several lifestyle modifications he could make to relieve nocturia.???5.?Morbid obesity - E66.01???Notes :His body mass index is 43 after losing 4? pounds. We made a plan to lose weight at a rate of one half of a pound per week through diet restricted in fat calories and sodium combined with regular physical activity. He will continue his antidepressants. We began a discussion of the use of injected semaglutide. He is going to research this medication and we will discuss it further on his next visit. He is going to see if his insurance will cover.??? Plan: * Treatment: * Labs:? * ?Lab: URINE DIP STICK (C ollection Date & Time - 12/26/2024) ? Value Reference Range ?SG 1.020 1.005 - 1.025 * ?pH 6.0 5.0 - 9.0 * ?NOE Neg Negative - * ?NIT Neg Negative - * ?PRO 15 Negative - Trac e * ?GLU Neg Negative - * ?KET Neg Negative - * ?UBG 0.2 0.1 - 1.8 * ?LIZZETH Neg 0.2 - 1.3 * ?BLD +++ Negative - * Procedure Codes:?01068 URINE -NO MICRO * Preventive Medicine:? ??Counseling:?Care goal follow-up plan:?Counseling for abnormal BMI given?Yes ?Above Normal BMI Follow-up?Dietary management education, guidance, and counseling, Dietary needs education, Exercise promotion: strength training, Exercise promotion: stretching, Feeding regime, Giving encouragement to exercise, Lifestyle education regarding diet, Nutrition / feeding management, Nutrition therapy, Prescribed activity/exercise education, Prescribed diet education, Prescribed dietary intake, Special diet education, Weight monitoring , Intervention, Order not done: Medical or Other reason not done * Follow Up:?Spring (Reason: R egular check-up) * Images: * Sign off status: Completed true * Provider:?Mainor Masters MD Date:?11/29 Generated for 1DayLater mesfin/Marianne/eTransmitting on:?01/16/2025 09:45 AM EST History and Physical Notes * HPI (History of Present Illness) Category Sub-Category Detail Notes Depression Screening PHQ-9 Little inte rest or pleasure in doing things: Several days Feeling down, depressed, or hopeless: Se veral days Trouble falling or staying asleep, or sl eeping too much: Nearly every day Feeling tired or having little energy: M ore than half the days Poor appetite or overeating: Several day s Feeling bad about yourself o r that you are a failure, or have let yourself or your family down: More than half the days Trouble concentrating on thi ngs, such as reading the newspaper or watching television: Not at all Moving or speaking so slowly that other people could have noticed; or the opposite, being so fidgety or restless that you have been moving around a lot more than usual: Not at all Thoughts that you would be b alex off or of hurting yourself in some way: Not at all Total Score: 10 Interpretation: Moderate Depression COVID-19 Screening Questions Have you had any new onset fever, chills, cough, congestion, sore throat, shortness of breath, muscle aches?: No SDOH Questions SDOH Questions In the past year have you been worried about losing your housing?: No In the past year have you or any family members you live with been unable to get any of the following when it was really needed? Check all that apply:: None Examination Category Sub-Category Detail Notes General Examination GENERAL APPEARANCE: pleasant , well nourished, well developed, in no acute distress, calm and relaxed, morbidly obese, man HEAD: atraumatic, normocep halic EYES: eomi, perrla, anicte yina, conjugate EARS: normal NOSE: septum intact NECK/THYROID: no jugular venous di stention, no carotid bruit, thyroid normal HEART: no clicks, gallops, murmurs, or rubs, regular rhythm, S1, S2 normal, no s3, or vascular bruits LUNGS: clear to auscultatio n ABDOMEN: bowel sounds normal, no ascites, no organomegaly, no mass NEUROLOGIC: alert and oriented, cranial nerves 2-12 grossly intact, deep tendon reflexes 2+ symmetrical, motor strength normal upper and lower extremities, sensory exam intact SKIN: no suspicious lesion s, anicteric PERIPHERAL PULSES: normal BREASTS: no masses palpable b ilaterally MUSCULOSKELETAL: extremities unremark able, no clubbing, cyanosis or edema LYMPH NODES: no enlarged lymph no jess,spleen normal RECTAL EXAM: not examined PSYCH: alert, oriented ORAL CAVITY: normal, unremarkable
--- OUTSIDE RECORDS SUMMARY | 2025-01-16 09:46 | XMS_ITS | Clinical Summary ---
Author Organization [facility] Address [address] [place] [address] Care Team Providers Care Composition Professor Name Role Phone Unavailable Primary Care Provider Unavailabl e Social History Tobacco Use Types Packs/Day Years Used Date Smoking Tobacco: Never Assessed Sex and Gender Information Value Date Recorded Sex Assigned at Not on file Legal Sex Male 9:29 AM EST Gender Identity Not on file Sexual Orientation [...] patient's age to complete this topic Meningococcal B Vacine Aged Out No lo nger eligible based on patient's age to complete [...]
--- OUTSIDE RECORDS SUMMARY | 2025-01-16 09:46 | XMS_ITS ---
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 Role Phone Mainor Masters MD Primary Care Provider UnavailKiran Casillas Jr Unavailable ALLERGIES No Known Allergies REASON FOR VISIT Patient presents today for a colon screening MEDICATIONS Medication SIG (Take, Route, Frequency, Duration) Notes Start Date End Date Status Tadalafil 5 MG 1 tablet as needed O rally Once a day for 30 day(s) Active D-5000 125 MCG (5000 UT) TAKE 1 TABLET B Y MOUTH EVERY DAY Oral for 90 Active buPROPion HCl ER (XL) 300 MG TAKE 1 TABLET BY MOUTH EVERY DAY IN THE MORNING Oral for 90 Active MiraLax (colon prep) 17 GM/SCOOP mixed with Gatorade or Crystal Light Orally begin at 5:00 p.m. the day before the procedure for 1 day 04/25/2024 Active SOCIAL HISTORY Tobacco Use: Social History Observation Description Date Details (start date - stop date) Never Smoker NA - NA Sex Assigned At : Social History Observation Description Sex Assigned At Unknown Tobacco Use/Smoking Question Answer Notes Patient is a nonsmoker Alcohol Screen Question Answer Notes Did you have a drink contain ing alcohol in the past year? Yes How often did you have a dri nk containing alcohol in the past year? 2 to 4 times a month (2 points) How many drinks did you have on a typical day when you were drinking in the past year? 3 or 4 drinks (1 point) How often did you have 6 or more drinks on one occasion in the past year? Never (0 point) Points 3 Interpretation Negative PROBLEMS Problem Type ICD Code Onset Dates Problem Status W/U Status Risk SNOMED Code Notes Problem Colon cancer screening (Z12.11) Active confirmed 012867179 VITAL SIGNS BMI 43.16 kg/m2 04/25/2024 Blood pressure systolic 000 mm Hg 04/25/20 24 Blood pressure diastolic 00 mm Hg 024 Height 5 ft 11 in in 04/25/2024 Temperature 98.7 degrees Fahrenheit 04/25/20 24 Weight 309 lb 8 oz lbs 04/25/2024 Encounters Encounter Location Date Provider Diagnosis [facility] [address] [place] [address] 04/25/2024 Kiran Carlos Jr Colon cancer screening Z12.11 ASSESSMENTS Encounter Date Diagnosis Assessment Notes Treatment Notes Treatment Clinical Notes 04/25/2024 Colon cancer screening (ICD-10 - Z12.11) PLAN OF TREATMENT Medication Medication Name Sig Start Date Stop Date Notes MiraLax (colon prep) 17 GM/SCOOP mixed with Gatorade or Crystal Light Orally begin at 5:00 p.m. the day before the procedure for 1 day 04/25/2024 Future Test Test Name Order Date COLONOSCOPY 04/25/2024 Next Appt Details Follow Up: 1 Year, Reason: Progress Notes * Examination Category Sub-Category Detail Notes General Examination GENERAL APPEARANCE: in no ac kot[place] distress HEAD: normocephalic EYES: sclera non-icteric NECK/THYROID: no lymphadenopathy HEART: S1, S2 normal, no mu rmurs CHEST: normal shape and exp ansion LUNGS: clear to auscultatio n bilaterally ABDOMEN: soft, nontender, non distended, bowel sounds present, no organomegaly SKIN: anicteric EXTREMITIES: no clubbing, cyanosi s, or edema PSYCH: cognitive function i ntact ORAL CAVITY: mucosa moist
--- OUTSIDE RECORDS SUMMARY | 2025-01-16 09:46 | XMS_ITS ---
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
--- OUTSIDE RECORDS SUMMARY | 2025-01-16 09:47 | XMS_ITS | Patient Health Record ---
Author Organization [facility] Address [address] [place] [address] Care Team Providers Care Psychology Intern Name Role Phone Sonam MERCEDES, Mainor Primary Care Provider Unavailab Kiran Gibson Jr Unavailable ALLERGIES No Known Allergies RESULTS Component Value Reference Range Notes Pathology Reviewed date:05/15/2024 03:49:15 PM Interpretation: Performing Lab:[facility], [address] [place] [phone] Notes/Report: REASON FOR REFERRAL Referring Provider First Name Mainor Referring Provider Last Name Sonam Referring Provider Speciality Oncology Referred Organization [facility] Referred Provider Kiran Mancera Jr Referred Address [address] [place] [address],[facility] [address],[place], [place],[address], Referred Provider Specialty Gastroentero logy General Notes Paula Smalls 024 10:34:08 AM EDT > [facility] WITH DR MANCERA ON [phone] Referral Priority Routine MEDICATIONS Medication SIG (Take, Route, Frequency, Duration) [...] the procedure for 1 day 04/25/2024 Active IMMUNIZATIONS Vaccine Route Administration Date Status Comme nts Influenza Unknown 09/20/2023 Administered SOCIAL HISTORY Tobacco Use: Social History Observation [...] Problem Colon cancer screening (Z12.11) Active confirmed [id number] VITAL SIGNS Temperature 98.7 degrees Fahrenheit 04/25/2024 Blood pressure diastolic 00 mm Hg 04/25/2024 Height 5 ft 11 in in 04/25/2024 Blood pressure systolic 000 mm Hg 04/25/2024 Weight 309 lb 8 oz lbs 04/25/2024 BMI 43.16 kg/m2 04/25/2024 Encounters Encounter Location Date Provider Diagnosis [facility] Outpatient [address] [place] [phone] 05/11/2024 Kiran Mancera Jr Colon cancer screening Z12.11 and Colon polyps K63.5 [facility] [address] [place] [phone] 04/25/2024 Kiran Mancera Jr Colon cancer screening Z12.11 [facility] [address] [place] [phone] 05/15/2024 Kiran Mancera Jr ASSESSMENTS Encounter Date Diagnosis Assessment Notes Treatment Notes Treatment Clinical Notes 05/11/2024 Colon cancer screening (ICD-10 - Z12.11) 05/11/2024 Colon polyps (ICD-10 - K63.5) 04/25/2024 Colon cancer screening (ICD-10 - Z12.11) PLAN OF TREATMENT Future Test Test Name Order Date COLONOSCOPY 04/25/2024 Insurance Providers Payer Name Payer Address Payer Phone Subscriber Number Group Number Insured Name Patient Relationship to Insured Coverage Start Date Coverage End Date [employer] OF [employer] [address] [id number] [id number] BRITTANY [id number] Self - patient is the insured MEDICAL (GENERAL) HISTORY Medical History History ICD Code Asthma Anxiety/depression KLARISSA/CPAP Elevated body mass index Surgical History Surgery Date(Month/Year) sleeve gastrectomy 2020 lap band 2009
--- OUTSIDE RECORDS SUMMARY | 2025-01-16 09:47 | XMS_ITS | Patient Health Record ---
Author Organization Mainor Masters III, MD Address [address] [place] [address] Care Team Providers Care Hearing Stenographer Name Role Phone Mainor Masters Primary Care [...] 0.2 - 1.3 BLD +++ Negative - Pathology Reviewed date:05/19/2024 05:56:56 PM Interpretation: Performing Lab:[facility], [address] [place] [phone] Notes/Report: Name: Varun Mcpherson Age/Sex: 48/M : 1975 Unit#: [id number] Attend Dr: Kiran Carlos MD Re05/11/24 [address]: [facility] Location: [place] Disch: SPEC : [id number] RECD: 05/11/24-1108 STATUS: IHSAN MCNELI NUM: [id number] PIA: 05/11/24-[address] [facility] [address]: Kiran Carlos MD ENTERED: 05/11/24 SP TYPE: Surgical OTHR DR: Mainor Masters MD ORDERED: HE Stain/3, Gross Micro L4 Diagnosis Colon, right, polypectomy: Tubular adenoma; negative for high-grade dysplasia. Clinical History Pre-Op Dx: Screening Post-Op Dx: Colon polyp Microscopic Description Microscopic sections reviewed. Material Received Right colon polyp Gross Description Received in formalin are multiple larson 1-2 mm soft tissue fragments, totally submitted in A1. ([facility]) Copies To: Mainor Masters MD [address] [place] [address], [address] [place] [address] Kiran Carlos MD [address] [place] [address] [address] [place] [address] Signed (signature on file) Falguni Ospina MD 05/15/24 1027 END OF REPORT Complete Blood Count Auto Di ff Reviewed date:08/15/2024 07:01:08 AM Interpretation: Performing Lab:[facility], [address] [place] [address] Notes/Report: White Blood Count 5.7 4.8-10.8 X10*3/uL Red Blood Count 5.23 4.60-5.80 X10*6/uL Hemoglobin 15.5 14.0-18.0 g/dl Hematocrit 44.6 42.0-52.0 % Mean Corpuscular Volume 85.3 80.0-98.0 fL Mean Corpuscular Hemoglobin 29.6 27.0-33.0 pg Mean Corpuscular HGB Conc 34.8 31.0-36.0 g/dl Red Cell Distribution Width 13.2 11.0-16.0 % Platelet Count 186 160-400 X10*3/uL Mean Platelet Volume 9.9 9.4-12.4 fL Neutrophils Percent Auto 57.6 45-73 % Imm Gran Pct Auto 0.5 0.0-0.4 % Lymphocytes Percent Auto 31.3 20-40 % Monocytes Percent Auto 9.3 2-11 % Eosinophils Percent Auto 0.9 0-4 % Basophils Percent Auto 0.4 0-2 % NRBC Pct Auto 0.0 0.0-0.2 /100WBC Neutrophils Absolute Auto 3.3 2.0-8.3 x10*3/u L Imm Gran Abs Auto 0.03 0.00-0.03 X10*3/uL Lymphocytes Absolute Auto 1.8 1.2-4.9 X10*3/u L Monocytes Absolute Auto 0.5 0.1-1.2 X10*3/uL Eosinophils Absolute Auto 0.1 0.0-0.4 X10*3/u L Basophils Absolute Auto 0.0 0.0-0.2 X10*3/uL NRBC Abs Auto 0.000 0.0-0.012 X10*3/uL Comprehensive Tenino. Panel Fa st Reviewed date:08/15/2024 07:01:08 AM Interpretation: Performing Lab:[facility], [address] [place] [phone] Notes/Report: Sodium 141 135-145 mmol/L Potassium 3.9 3.3-5.1 mmol/L Chloride 108 96-108 mmol/L Carbon Dioxide 25 22-29 mmol/L Anion Gap 12 12-20 Blood Urea Nitrogen 11 9-16 mg/dL Creatinine 1.08 0.5-1.4 mg/dL Estimated Glomerular Filt Rate > 60 NOTE: For -Burmese individuals, multiply the result by 1.210. Chronic Kidney Disease: Estimated GFR < 60 mL/min/1.73m2 Severe Kidney Disease: Estimated GFR < 15 mL/min/1.73m2 Glucose Fasting 96 60-99 mg/dL Calcium 9.5 8.4-10.2 mg/dL Bilirubin Total 0.8 0.0-1.0 mg/dL Aspartate Amino Transferase 23 5-37 U/L Alanine Aminotransferase 25 0-40 U/L Total Protein 7.0 6.5-8.0 g/dL Albumin Level 4.1 3.5-5.0 g/dL Alkaline Phosphatase 100 39-117 U/L Lipid Panel Reviewed date:08/15/2024 07:01:08 AM Interpretation: Performing Lab:[facility], [address] [place] [phone] Notes/Report: Triglycerides 186 <150 mg/dL Desirable Triglyceride: less than 150 mg/dL Borderline High Triglyceride 150-199 mg/dL High Triglyceride: 200-499 mg/dL Very High Triglyceride: greater than or equal to 5OO mg/dL Cholesterol 151 <200 mg/dL Desirable Cholesterol: less than 200 mg/dL Borderline High Cholesterol: 200-239 mg/dL High Cholesterol: greater than 239 mg/dL LDL Cholesterol Calculated 74 <100 mg/dL Desirable LDL: less than 100 mg/dL Near Optimal/Above Optimal LDL: 110-129 mg/dL Borderline High LDL: 130-159 mg/dL High LDL: 160-189 mg/dL Very High LDL: greater than or equal to 190 mg/dL HDL Cholesterol 40 >40 mg/dL Desirable HDL: greater than 40 mg/dL Note: This HDL assay may give artificially low results in patients with liver disease. Prostate Specific Antigen Reviewed date:08/15/2024 07:01:08 AM Interpretation: Performing Lab:[facility], [address] [place] [phone] Notes/Report: Prostate Specific Antigen 0.38 <0.05-4.0 ng/mL PSA methodology: Cloud Alinity i Chemiluminescent Microparticle Immunoassay (CMIA) Complete Blood Count Auto Di ff Reviewed date:12/23/2024 04:52:54 PM Interpretation: Performing Lab:[facility], [address] [place] [phone] Notes/Report: White Blood Count 5.3 4.8-10.8 X10*3/uL Red Blood Count 5.32 4.60-5.80 X10*6/uL Hemoglobin 15.9 14.0-18.0 g/dl Hematocrit 45.1 42.0-52.0 % Mean Corpuscular Volume 84.8 80.0-98.0 fL Mean Corpuscular Hemoglobin 29.9 27.0-33.0 pg Mean Corpuscular HGB Conc 35.3 31.0-36.0 g/dl Red Cell Distribution Width 12.9 11.0-16.0 % Platelet Count 189 160-400 X10*3/uL Mean Platelet Volume 9.5 9.4-12.4 fL Neutrophils Percent Auto 61.5 45-73 % Imm Gran Pct Auto 0.4 0.0-0.4 % Lymphocytes Percent Auto 26.5 20-40 % Monocytes Percent Auto 9.9 2-11 % Eosinophils Percent Auto 1.1 0-4 % Basophils Percent Auto 0.6 0-2 % NRBC Pct Auto 0.0 0.0-0.2 /100WBC Neutrophils Absolute Auto 3.2 2.0-8.3 x10*3/u L Imm Gran Abs Auto 0.02 0.00-0.03 X10*3/uL Lymphocytes Absolute Auto 1.4 1.2-4.9 X10*3/u L Monocytes Absolute Auto 0.5 0.1-1.2 X10*3/uL Eosinophils Absolute Auto 0.1 0.0-0.4 X10*3/u L Basophils Absolute Auto 0.0 0.0-0.2 X10*3/uL NRBC Abs Auto 0.000 0.0-0.012 X10*3/uL Comprehensive Tenino. Panel Fa st Reviewed date:12/23/2024 04:52:54 PM Interpretation: Performing Lab:[facility], [address] [place] [phone] Notes/Report: Sodium 140 135-145 mmol/L Potassium 4.0 3.3-5.1 mmol/L Chloride 110 96-108 mmol/L Carbon Dioxide 26 22-29 mmol/L Anion Gap 8 12-20 Blood Urea Nitrogen 12 9-16 mg/dL Creatinine 1.18 0.5-1.4 mg/dL Estimated Glomerular Filt Rate > 60 Chronic Kidney Disease: Estimated GFR < 60 mL/min/1.73m2 Severe Kidney Disease: Estimated GFR < 15 mL/min/1.73m2 Glucose Fasting 82 60-99 mg/dL Calcium 9.8 8.4-10.2 mg/dL Bilirubin Total 0.9 0.0-1.0 mg/dL Aspartate Amino Transferase 32 5-37 U/L Alanine Aminotransferase 37 0-40 U/L Total Protein 7.6 6.5-8.0 g/dL Albumin Level 4.4 3.5-5.0 g/dL Alkaline Phosphatase 112 39-117 U/L Lipid Panel Reviewed date:12/23/2024 04:52:54 PM Interpretation: Performing Lab:[facility], [address] [place] [phone] Notes/Report: Triglycerides 193 <150 mg/dL Desirable Triglyceride: less than 150 mg/dL Borderline High Triglyceride 150-199 mg/dL High Triglyceride: 200-499 mg/dL Very High Triglyceride: greater than or equal to 5OO mg/dL Cholesterol 142 <200 mg/dL Desirable Cholesterol: less than 200 mg/dL Borderline High Cholesterol: 200-239 mg/dL High Cholesterol: greater than 239 mg/dL LDL Cholesterol Calculated 69 <100 mg/dL Desirable LDL: less than 100 mg/dL Near Optimal/Above Optimal LDL: 110-129 mg/dL Borderline High LDL: 130-159 mg/dL High LDL: 160-189 mg/dL Very High LDL: greater than or equal to 190 mg/dL HDL Cholesterol 35 >40 mg/dL Desirable HDL: greater than 40 mg/dL Note: This HDL assay may give artificially low results in patients with liver disease. Prostate Specific Antigen Reviewed date:12/23/2024 04:52:54 PM Interpretation: Performing Lab:[facility], [address] [place] [address], [place] [address] Notes/Report: Prostate Specific Antigen 0.31 <0.05-4.0 ng/mL PSA methodology: Cloud Alinity i Chemiluminescent Microparticle Immunoassay (CMIA) Reason For Referral No Information Medications Medication SIG (Take, Route, Frequency, Duration) [...] IN THE MORNING FOR 30 DAYS Active Immunizations Vaccine Route Administration Date Status Comme nts Influenza, quad Unknown 07/15/2021 Administered Influenza, quad Unknown 08/05/2022 Administered COVID- 19 Vaccine Unknown 03/01/2021 Administered COVID- 19 Vaccine Unknown 10/15/2021 Administered COVID- 19 Vaccine Unknown 08/05/2022 Administered COVID- 19 Vaccine Unknown 03/31/2021 Administered Tdap Unknown 12/14/2020 Administered Influenza, quad Unknown 08/12/2023 Administered Influenza, quad Unknown 09/11/2020 Administered COVID-19 Moderna SPIKEVAX Unknown 08/15/2023 Administer ed Influenza, quad Unknown 08/31/2019 Administered Influenza, quad Unknown 07/19/2021 Administered Comirnaty Pfizer COVID-19 12+ Unknown 10/02/2024 Admini stered COVID-19 Moderna SPIKEVAX Unknown 08/15/2023 Administer ed COVID Moderna Bivalent Unknown 08/05/2022 Administered Flu-IIv3 Unknown 10/02/2024 Administered Social History Tobacco Use: Social History Observation [...] Never (0 point) Points 1 Interpretation Negative Problems Problem Type SNOMED Code ICD Code Onset Dates Problem Status W/U Status Risk Notes Problem Benign prostatic hyperplasia (718029623) BPH (benign prostatic hyperplasia) (N40.0) Active confirmed He rises from sleep once or twice a night to urinate. We have discussed several lifestyle modifications he could make to relieve nocturia. Problem 80884206 Obstructive sleep apnea (G47.33) Active confirmed He will continue to use his CPAP machine at the current setting. Problem 138601361 Seasonal allergies (J30.2) Active confirmed He says he had some difficulty with allergies during pollen season but that is now resolved. He feels well. Problem 258789502 Morbid obesity (E66.01) Active confirmed His body mass index is 43 after losing 4 pounds. We made a plan to lose weight at a rate of one half of a pound per week through diet restricted in fat calories and sodium combined with regular physical activity. He will continue his antidepressants . We began a discussion of the use of injected semaglutide. He is going to research this medication and we will discuss it further on his next visit. He is going to see if his insurance will cover. 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 He wants to continue on the current dose of bupropion. We discussed strategies by which she could cope with being unemployed, which included beginning a search for a new job and making new connections. Vital Signs Heart Rate 99 /min 12/26/2024 Temperature 97.9 degrees Fahrenheit 12/26/2024 Blood pressure diastolic 84 mm Hg 12/26/2024 Height 70 in 12/26/2024 Blood pressure systolic 132 mm Hg 12/26/2024 Weight 305 lbs 12/26/2024 BMI 43.76 kg/m2 12/26/2024 Encounters Encounter Location Date Provider Diagnosis Mainor Masters III, MD [address] [place] [address] [place] [phone] 05/02/2024 Mainor Masters Obstructive sleep apnea G47.33 ; Obesity (BMI 30-39.9) E66.9 ; BPH (benign prostatic hyperplasia) N40.0 and History of depression Z86.59 Mainor Masters III, MD [address] [place] [address] [place] [address] 08/16/2024 Mainor Masters Seasonal allergies J30.2 ; Obstructive sleep apnea G47.33 ; History of depression Z86.59 ; BPH (benign prostatic hyperplasia) N40.0 and Morbid obesity E66.01 Mainor Masters III, MD [address] [place] [address] [place] [address] 10/01/2024 Mainor Masters Obesity (BMI 30-39.9 ) E66.9 ; History of depression Z86.59 ; BPH (benign prostatic hyperplasia) N40.0 ; Obstructive sleep apnea G47.33 and Seasonal allergies J30.2 Mainor Masters III, MD [address] [place] [address] [place] [address] 12/26/2024 Mainor Masters Seasonal allergies J30.2 ; Obstructive sleep apnea G47.33 ; History of depression Z86.59 ; BPH (benign prostatic hyperplasia) N40.0 and Morbid obesity E66.01 Mainor Masters III, MD [address] [place] [address] [place] [address] 08/24/2024 Mainor Masters III, MD [address] [place] [address] [place] [phone] 11/15/2024 Mainor Masters III, MD [address] [place] [address] [place] [address] 12/24/2024 Mainor Masters III, MD [address] [place] [address] [place] [address] 04/23/2024 Mainor Masters III, MD [address] [place] [address] [place] [address] 04/23/2024 Mainor Masters III, MD [address] [place] [address] [place] [address] 11/14/2024 Mainor Masters Assessments Encounter Date Diagnosis (ICD Code) Assessment Notes Treatment Notes Treatment Clinical Notes 05/02/2024 Obesity (BMI 30-39.9) (ICD-10 - E66.9) I recommended he reestablishes connections with the weight loss program at [facility] [place] [facility]. We have discussed his diet and nutrition. We have formulated a plan through lifestyle modification that he will lose weight at a rate of one half of a pound per week through a diet restricted in fat calories and sodium combined with regular physical activities. 05/02/2024 Obstructive sleep apnea (ICD-10 - G47.33) He will continue to use his CPAP machine at the current setting. 08/16/2024 Obstructive sleep apnea (ICD-10 - G47.33) He will continue to use his CPAP machine at the current setting. 08/16/2024 Seasonal allergies (ICD-10 - J30.2) He says he had some difficulty with allergies during pollen season but that is now resolved. He feels well. 10/01/2024 Obesity (BMI 30-39.9) (ICD-10 - E66.9) He continues in the weight loss program. We have discussed diet and nutrition today. We agreed to make a commitment to a weight loss of one half pound per week. 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 He wants to continue on the current dose of bupropion. We discussed strategies by which she could cope with being unemployed, which included beginning a search for a new job and making new connections. 12/26/2024 Obstructive sleep apnea (ICD-10 - G47.33) He will continue to use his CPAP machine at the current setting. 12/26/2024 Seasonal allergies (ICD-10 - J30.2) He says he had some difficulty with allergies during pollen season but that is now resolved. He feels well. 05/02/2024 BPH (benign prostatic hyperplasia) (ICD-10 - N40.0) He rises from sleep once a night to urinate. We have discussed lifestyle modification as a way to reduce nocturia. 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 He wants to continue on the current dose of bupropion. We discussed strategies by which she could cope with being unemployed, which included beginning a search for a new job and making new connections. 10/01/2024 BPH (benign prostatic hyperplasia) (ICD-10 - N40.0) He rises from sleep once or twice a night to urinate. We have discussed several lifestyle modifications he could make to relieve nocturia. 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 He wants to continue on the current dose of bupropion. We discussed strategies by which she could cope with being unemployed, which included beginning a search for a new job and making new connections. 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 He wants to continue on the current dose of bupropion. We discussed strategies by which she could cope with being unemployed, which included beginning a search for a new job and making new connections. 08/16/2024 BPH (benign prostatic hyperplasia) (ICD-10 - N40.0) He rises from sleep once a night to urinate. We have discussed lifestyle modification as a way to reduce nocturia. 10/01/2024 Obstructive sleep apnea (ICD-10 - G47.33) He will continue to use his CPAP machine at the current setting. 12/26/2024 BPH (benign prostatic hyperplasia) (ICD-10 - N40.0) He rises from sleep once or twice a night to urinate. We have discussed several lifestyle modifications he could make to relieve nocturia. 08/16/2024 Morbid obesity (ICD-10 - E66.01) His body mass index is 43 after rogelio 7 pounds. We made a plan to lose [...] to see if his insurance will cover. 10/01/2024 Seasonal allergies (ICD-10 - J30.2) He says he had some difficulty with allergies during pollen season but that is now resolved. He feels well. 12/26/2024 Morbid obesity (ICD-10 - E66.01) His [...] to see if his insurance will cover. 11/14/2024 Other CancelRx Respon se got Denied on 2024-12-24 14:30:10 for 'Zepbound 2.5 MG/0.5ML Solution Auto-injector'Low benites Notes: Unable to cancel prescription; prescription was transferred to another pharmacy. No prior dispensing Plan Of Treatment Pending Test Test Name Order Date PROFILE, FASTING (COMPREHENSIVE METABOLI C) 05/02/2024 PROFILE, FASTING (COMPREHENSIVE METABOLI C) 12/22/2022 PROFILE, FASTING (COMPREHENSIVE METABOLI C) 10/01/2022 PROFILE, FASTING (COMPREHENSIVE METABOLI C) 10/03/2019 PROFILE, FASTING (COMPREHENSIVE METABOLI C) 10/01/2024 LIPID PANEL 10/01/2022 LIPID PANEL 10/03/2019 PSA, TOTAL 05/02/2024 PSA, TOTAL 12/22/2022 PSA, TOTAL 10/03/2019 PSA, TOTAL 10/01/2024 PSA, TOTAL SCREEN 10/01/2022 CBC w DIFF 05/02/2024 CBC w DIFF 12/22/2022 CBC w DIFF 10/01/2022 CBC w DIFF 10/03/2019 VITAMIN D 25-OH TOTAL 10/01/2022 CBC WITH AUTO DIFF 10/01/2024 Lipid Panel 10/01/2024 Lipid Panel 05/02/2024 Lipid Panel 12/22/2022 Vitamin D 25-OH Total 12/22/2022 Next Appt Details Provider Name:Mainor Masters, 02/25/2025 03:15:00 PM, [address] [place] [address] [address], [place], [address], Provider Name:Mainor Masters, 12/30/2025 02:00:00 PM, [address] [place] [address] [address], [place], [address], Insurance Providers Payer Name Payer Address Payer Phone Subscriber Number Group Number Insured Name Patient Relationship to Insured Coverage Start Date Coverage End Date [employer] [address] [address] [place] [address] [id number] Varun Mcpherson Self - patient is the insured Medical (General) History Medical History History ICD Code morbid obesity seasonal allergies obstructive sleep apnea on CPAP 2004 skin lesion on nose history of depression The patient has a history of COVID-19 and high blood pressure. He has been taking vitamin D and has been prescribed bupropion. Surgical History Surgery Date(Month/Year) gastric laparoscopic banding, bariatric surgery 2012 vertical gastric sleeve 05/2020 No history Hospitalization History Reason Date(Month/Year) No history
--- OUTSIDE RECORDS SUMMARY | 2025-01-16 09:47 | XMS_ITS ---
Author Organization Mainor Masters III, MD Address [address] [place] [place] [address] Care Team Providers Care Weight Loss Consultant Name Role Phone Mainor Masters Primary Care Provider REASON FOR VISIT Message Social History Sex Assigned At : Social History Observation Description Sex Assigned At Male Encounters Encounter Location Date Provider Diagnosis Mainor Masters III, MD [address] [place] [address] [place] [address] 11/15/2024 Mainor Masters Plan Of Treatment Next Appt Details Provider Name:Mainor Masters, 02/25/2025 03:15:00 PM, [address] [place] [address] [place], [address], Provider Name:Mainor Masters, 12/30/2025 02:00:00 PM, [address] [place] [address] [place], [phone], Progress Notes * TRESAVarunDOB:1975 (49 yo M)Acc No.[id number]:11/15/2024 Patient:?Varun GTZ :1975???Age:49 Y???Sex:Male Address:[place], [address] * true * Date:? Generated for Printi ng/Faoscarg/eTransmitting on:?01/16/2025 09:46 AM EST
== END 2025-01-16 09:52 | disposition home or self-care (01) ==
PROVIDERS: PCP Internal Medicine Medical Oncology; Visit Provider Internal Medicine
DX: E66.01 Morbid (severe) obesity due to excess calories (principal); G47.33 Obstructive sleep apnea (adult) (pediatric); Z99.89 Dependence on other enabling machines and devices
CPT/HCPCS: 99213

== ENCOUNTER → 2025-01-16 09:26 | Outpatient (BNVA) | payer OTHER, SELFPAY | PROVIDERS: PCP Internal Medicine Medical Oncology; Visit Provider Internal Medicine | DX: G47.33 Obstructive sleep apnea (adult) (pediatric) (principal); E66.01 Morbid (severe) obesity due to excess calories; Z99.89 Dependence on other enabling machines and devices; Z68.41 Body mass index [BMI] 40.0-44.9, adult | CPT/HCPCS: 99212 ==

== ENCOUNTER 2025-01-30 14:41 | Emergency (ER) | payer OTHER, SELFPAY ==
--- NOTE | ~2025-01-30 | CT_ITS ---
CLINICAL HISTORY: LLQ, L flank pain Exam: CT Abdomen and Pelvis Without IV Contrast Comparison ultrasound of the abdomen 02/07/2020 Findings: The liver density is homogeneous. Gallbladder is normal in size and contains multiple gallstones. The spleen is normal in size. No pancreatic ductal dilatation. There is hydronephrosis of the left kidney collecting system due to a 2 x 4 mm calculus in the distal left ureter above the UVJ. Normal bowel caliber. There has been prior gastric surgery resembling gastric sleeve. There is a 3 cm sliding hiatal hernia. The appendix is normal. No free fluid/free air. The abdominal aorta caliber is normal. Bladder outline is smooth. No suspicious skeletal lesions. Impression: 2 x 4 mm distal left ureteral calculus above the UVJ partially obstructing the left ureter. Cholelithiasis. This document has been electronically signed by: Kirt Soares MD on 01/30/2025 17:50:27
[2025-01-30 15:03] VITALS: BP 138/91; PULSE 85; RESP 16; TEMP 36.7; O2SAT 96; BMI 19.2
--- NOTE | 2025-01-30 15:03 | ED_ITS ---
HPI - Abdominal Pain General Chief Complaint: Abdominal Pain Stated Complaint: Abdominal Pain Time Seen by Provider: 01/30/25 21:00 Source: patient Mode of arrival: ambulatory Limitations: no limitations History of Present Illness ED Provider: Dr. Monie Deleon HPI narrative: Patient comes to the emergency room complaining of left-sided flank pain intermittently for almost 24 hours. Patient complaining of nausea vomiting, states that his urine looks pinkish, no dysuria. Denies fever or chills. Patient states that at this time, he feels much better. However, the pain is intermittent. Denies diarrhea. Related Data Home Medications ?Medication ?Instructions ?Recorded ?Confirmed bupropion HCl 300 mg 24 hr tablet, 300 mg PO DAILY 03/27/24 07/23/24 extended release tadalafil 5 mg tablet 5 mg PO DAILY 05/09/24 07/23/24 sertraline 25 mg tablet 25 mg PO DAILY 01/16/25 tirzepatide (weight loss) 5 mg/0.5 5 mg subcut QWEEK 01/16/25 mL subcutaneous pen injector (Zepbound) Previous Rx's ?Medication ?Instructions ?Recorded cholecalciferol (vitamin D3) 125 125 mcg PO DAILY #90 tabs 03/13/24 mcg (5,000 unit) tablet (Vitamin D3) ondansetron HCl 4 mg tablet 4 mg PO Q6H PRN nausea and 01/30/25 vomiting #14 tabs oxycodone 5 mg tablet 5 mg PO BID PRN pain #7 tabs 01/30/25 tamsulosin 0.4 mg capsule 0.4 mg PO BEDTIME #14 caps 01/30/25 Allergies Allergy/AdvReac Type Severity Reaction Status Date / Time No Known Allergies Allergy Verified 01/30/25 15:08 [No Known Allergies*] Review of Systems Review of Systems Constitutional : No Weight loss, No Fever, No Chills, No Night Sweats, No Fatigue, No Malaise ENT/Mouth : No Hearing loss, No Ear Pain, No Nasal Congestion, No Sinus Pain, No Hoarseness, No sore throat, No Rhinorrhea, No Swallowing Difficulty Eyes: No Eye Pain, No Swelling, No Redness, No Foreign Body, No Discharge, No Vision Changes Cardiovascular : No Chest Pain, No SOB, No Dyspnea on Exertion, No Orthopnea, No Edema, No Palpitations Respiratory : No Cough, No Sputum, No Wheezing, No Smoke Exposure, No Dyspnea Gastrointestinal : complaining of intermittent nausea and vomiting secondary to pain, No Diarrhea, No Constipation, No abdominal Pain, No Hematochezia, No Melena Genitourinary : no irregular bleeding, No Dysuria, No Urinary Frequency, complaining of pink colored urine/ Hematuria, No Urinary Incontinence, No Urgency, Complaining of left-sided Flank Pain, No Urinary Flow Changes, No Hesitancy Musculoskeletal : No joint pain, No Myalgias, No Joint Swelling Skin : No Skin Lesions, No rash Neuro : No Weakness, No Numbness, No Paresthesias, No Loss of Consciousness, No Dizziness, No Headache Psych : No Anxiety/Panic, No Depression, No SI/HI/AH/VH, No Social Issues, Heme/Lymph: No Bruising, No Bleeding,No Lymphadenopathy Endocrine : No Polyuria, No Polydipsia, No Temperature Intolerance PMFSH Past Medical History Medical History Asthma Morbid obesity KLARISSA on CPAP Vitamin B12 deficiency Vitamin D deficiency Intestinal malabsorption following gastrectomy Surgical History Hx of laparoscopic gastric banding S/P laparoscopic sleeve gastrectomy Family History Family History Father No problems noted. Mother Sleep apnea Social History Social History Alcohol intake: current Alcohol intake frequency: holidays/special occasions only Patient Tobacco Use Status: Never used Tobacco Years Smoked: 1 year Advance Directives: No Advance Directives Information Provided: No Physical Exam ED Vital Signs: Vital Signs - 24 hr 01/30/25 15:03 01/30/25 19:29 Temperature 98.1 F 98.6 F Pulse Rate 85 97 Respiratory Rate 16 12 Blood Pressure 138/91 H 127/80 Pulse Oximetry 96 98 Oxygen Delivery Method Room Air Room Air BMI result Body Mass Index 19.2 Const Other: Appearance: Alert. Oriented X3. No acute distress. Eyes: Pupils equal, round and reactive to light. ENT: Pharynx normal. Neck: Normal inspection. Neck supple. No lymph nodes noted. No crepitus CVS: Normal heart rate and rhythm. Pulses normal. Normal S1 and S2 Respiratory: No respiratory distress. Breath sounds normal. No Wheezing. No rales Abdomen: Soft and nontender. No rigidity. No distention. mild CVA /left lower quadrant pain, no rebound or guarding Skin: Skin warm and dry. Normal skin color. Normal skin turgor. Extremities: No lower extremity edema. No Lacerations. No Rash Neuro: Oriented X 3. No motor deficit. No sensory deficit. Moving all extremities. No slurred speech. CN 2 through 12 grossly intact Psych: calm, cooperative, normal affect Course Course Course Narrative: This is a Rapid Medical Exam performed in triage by Nichole Tatum PA-C. Full HPI, ROS and PE to be performed by primary ED provider. 49 yo M w/pmhx KLARISSA on CPAP, anxiety, s/p sleeve gastrectomy presenting to the ED c/o LLQ/side pain, intermittently x 1 week, worsening with assoc nausea and vomiting x today. +decreased urinary output & hematuria x today PE: abd soft & nontender, no CVAT Plan: labs, UA, CT AP Medical Decision Making Medical Decision Making [facility] Narrative: my interpretation of labs: Patient's white blood cell count 11.7, likely reactive leukocytosis. Normal chemistry, urinalysis shows blood but no UTI CT scan shows of 4 mm by 2 mm partially obstructive stone in the left UVJ patient was given 1 dose of IM morphine sulfate, patient has history of gastric sleeve, will avoid NSAIDs. Patient was also given Zofran and tamsulosin discussed with the patient that if the pain increases or if he has not any symptoms , he needs to return to the emergency room, patient agreeable Differential Diagnosis Differential Diagnoses: The differential diagnosis associated with the presentation includes ( UTI, pyelonephritis, diverticulitis, ureterolithiasis) Admission/Observation Consideration of admission/observation: Escalation of care including admission/observation considered ( given patient's initial presentation, observation was considered) Lab Data [facility] Lab Attestation statement: I reviewed the patient's lab results. 01/30/25 15:53 01/30/25 15:53 Labs: Lab Results 01/30/25 01/30/25 Range/Units 15:53 17:22 WBC 11.7 H (4.8-10.8) X10*3/uL RBC 5.39 (4.60-5.80) X10*6/uL Hgb 15.8 (14.0-18.0) g/dl Hct 46.0 (42.0-52.0) % MCV 85.3 (80.0-98.0) fL MCH 29.3 (27.0-33.0) pg MCHC 34.3 (31.0-36.0) g/dl RDW 12.7 (11.0-16.0) % Plt Count 199 (160-400) X10*3/uL MPV 9.5 (9.4-12.4) fL Immature Gran % (Auto) 0.4 (0.0-0.4) % Neut % (Auto) 82.6 H (45-73) % Lymph % (Auto) 10.5 L (20-40) % [place] % (Auto) 5.9 (2-11) % Eos % (Auto) 0.3 (0-4) % Baso % (Auto) 0.3 (0-2) % Lymph # (Auto) 1.2 (1.2-4.9) X10*3/uL [place] # (Auto) 0.7 (0.1-1.2) X10*3/uL Eos # (Auto) 0.0 (0.0-0.4) X10*3/uL Baso # (Auto) 0.0 (0.0-0.2) X10*3/uL Abs Immat Gran (auto) 0.05 H (0.00-0.03) X10*3/uL Absolute Neuts (auto) 9.6 H (2.0-8.3) x10*3/uL Absolute Nucleated RBC 0.000 (0.0-0.012) X10*3/uL Nucleated RBC % (auto) 0.0 (0.0-0.2) /100WBC Sodium 141 (135-145) mmol/L Potassium 4.3 (3.3-5.1) mmol/L Chloride 109 H (96-108) mmol/L Carbon Dioxide 25 (22-29) mmol/L Anion Gap 11 L (12-20) BUN 14 (9-16) mg/dL Creatinine 1.39 (0.5-1.4) mg/dL Estim Creat Clear Calc 56.3 Estimated GFR 55 Random Glucose 102 (60-115) mg/dL Calcium 9.7 (8.4-10.2) mg/dL Magnesium 1.9 (1.6-2.6) mg/dL Total Bilirubin 0.9 (0.0-1.0) mg/dL Direct Bilirubin 0.3 (0.0-0.5) mg/dL AST 29 (5-37) U/L ALT 29 (0-40) U/L Alkaline Phosphatase 108 (39-117) U/L Total Protein 7.6 (6.5-8.0) g/dL Albumin 4.2 (3.5-5.0) g/dL Lipase 41 (8-78) U/L Urine Color Yellow Urine Appearance Turbid Urine pH 5.5 (5.0-9.0) Ur Specific [place] 1.025 (1.005-1.025) Urine Protein 30 (1+) H (Neg-Trace) mg/dL Urine Glucose (UA) Negative (Negative) mg/dL Urine Ketones 15 (Negative) mg/dL Urine Blood Large (3+) H (Negative) Urine Nitrite Negative (Negative) Ur Leukocyte Esterase Negative (Negative) Urine RBC >20 H (0-2) /HPF Urine WBC 0-5 (0-5) /HPF Ur Squamous Epith Cells 0-2 (0-2) /HPF Urine Bacteria None Seen (None Seen) Hyaline Casts 0-2 (0-2) /LPF Independent Interpretation I performed an independent interpretation of an: CT Scan Radiology Impression Discussion of test interpretation with radiology: I have reviewed the radiologist's reading. Radiologist Impression: The liver density is homogeneous. Gallbladder is normal in size and contains multiple gallstones. The spleen is normal in size. No pancreatic ductal dilatation. There is hydronephrosis of the left kidney collecting system due to a 2 x 4 mm calculus in the distal left ureter above the UVJ. Normal bowel caliber. There has been prior gastric surgery resembling gastric sleeve. There is a 3 cm sliding hiatal hernia. The appendix is normal. No free fluid/free air. The abdominal aorta caliber is normal. Bladder outline is smooth. No suspicious skeletal lesions. Impression: 2 x 4 mm distal left ureteral calculus above the UVJ partially obstructing the left ureter. Cholelithiasis. Critical Care Time Critical Care Time Critical Care Time: Yes Total Critical Care Time: 35 Attestation: I have personally provided critical care time. Time includes review of lab data, radiology results, discussion with consultants, and monitoring for potential decompensation. Intervention performed as documented. Discharge Plan Discharge Clinical Impression: Ureterolithiasis Patient Disposition: Home, Self-Care Instructions: Ureteral Stones (ED) Additional Instructions: Please follow-up with your primary care physician tomorrow. If you have any worsening or new symptoms, please return to the emergency room or call 911 Prescriptions: New tamsulosin 0.4 mg capsule 0.4 mg PO BEDTIME Qty: 14 0RF ondansetron HCl 4 mg tablet 4 mg PO Q6H PRN (Reason: nausea and vomiting) Qty: 14 0RF oxycodone 5 mg tablet 5 mg PO BID PRN (Reason: pain) Qty: 7 0RF Rx Instructions: Partial Fill upon patient request. No Action cholecalciferol (vitamin D3) [Vitamin D3] 125 mcg (5,000 unit) tablet 125 mcg PO DAILY Qty: 90 1RF tadalafil 5 mg Tablet 5 mg PO DAILY bupropion HCl 300 mg tablet extended release 24 hr 300 mg PO DAILY Zepbound 5 mg/0.5 mL pen injector 5 mg subcut QWEEK sertraline 25 mg tablet 25 mg PO DAILY Print Language: Israeli
[2025-01-30 15:57] LABS: MANUAL DIFF FLAG NO
[2025-01-30 16:01] LABS: Basophils Percent Auto 0.3 % (0-2); Eosinophils Percent Auto 0.3 % (0-4); Hemoglobin 15.8 g/dl (14.0-18.0); Imm Gran Abs Auto 0.05 X10*3/uL (0.00-0.03); Imm Gran Pct Auto 0.4 % (0.0-0.4); Lymphocytes Absolute Auto 1.2 X10*3/uL (1.2-4.9); Lymphocytes Percent Auto 10.5 % (20-40); Mean Corpuscular HGB Conc 34.3 g/dl (31.0-36.0); Mean Corpuscular Hemoglobin 29.3 pg (27.0-33.0); Mean Corpuscular Volume 85.3 fL (80.0-98.0); Mean Platelet Volume 9.5 fL (9.4-12.4); Monocytes Absolute Auto 0.7 X10*3/uL (0.1-1.2); Monocytes Percent Auto 5.9 % (2-11); Neutrophils Absolute Auto 9.6 x10*3/uL (2.0-8.3); Neutrophils Percent Auto 82.6 % (45-73); Platelet Count 199 X10*3/uL (160-400); Red Blood Count 5.39 X10*6/uL (4.60-5.80); Red Cell Distribution Width 12.7 % (11.0-16.0); White Blood Count 11.7 X10*3/uL (4.8-10.8)
[2025-01-30 16:23] LABS: Alanine Aminotransferase 29 U/L (0-40); Albumin Level 4.2 g/dL (3.5-5.0); Anion Gap 11 (12-20); Aspartate Amino Transferase 29 U/L (5-37); Bilirubin Direct 0.3 mg/dL (0.0-0.5); Bilirubin Total 0.9 mg/dL (0.0-1.0); Blood Urea Nitrogen 14 mg/dL (9-16); Calcium 9.7 mg/dL (8.4-10.2); Carbon Dioxide 25 mmol/L (22-29); Chloride 109 mmol/L (96-108); Creatinine Clr Calc Pharmacy 56.3; Estimated Glomerular Filt Rate 55; Glucose Random 102 mg/dL (60-115); Lipase 41 U/L (8-78); Magnesium 1.9 mg/dL (1.6-2.6); Potassium 4.3 mmol/L (3.3-5.1); Sodium 141 mmol/L (135-145); Total Protein 7.6 g/dL (6.5-8.0)
[2025-01-30 17:38] LABS: Alkaline Phosphatase 108 U/L (39-117)
[2025-01-30 17:42] LABS: Appearance Urine Turbid; Color Urine Yellow; Glucose Urine UA Negative (Negative); Leukocyte Esterase Urine Negative (Negative); Nitrite Urine Negative (Negative); PH 5.5 (5.0-9.0); Specific Gravity - Urine 1.025 (1.005-1.025); UMIC TRIGGER UACC YES; Urine Blood Large (3+) (Negative); Urine Ketones 15 mg/dL (Negative); Urine Protein 30 (1+) mg/dL (Neg-Trace)
[2025-01-30 17:58] LABS: Bacteria Urine None Seen (None Seen); Hyaline Casts Urine 0-2 /LPF (0-2); RBC Urine >20 /HPF (0-2); Squamous Epithelial Cell Urine 0-2 /HPF (0-2); WBC Urine 0-5 /HPF (0-5)
[2025-01-30 19:29] VITALS: BP 127/80; PULSE 97; RESP 12; TEMP 37; O2SAT 98
[2025-01-30] MEDS: Tamsulosin HCL 0.4 MG CAPSULE PO (21:40)
[2025-01-30] MEDS: oxyCODONE HCl Immed Release 5 MG TABLET PO (21:40)
[2025-01-30] MEDS: Ondansetron ODT 4 MG TAB.RAPDIS TRANSLINGU (21:40)
[2025-01-30] MEDS: Morphine Sulfate 2 MG/ML CARTRIDGE 1 MG IM (21:40)
[2025-01-30 21:41] VITALS: BP 118/88; PULSE 94; RESP 14; TEMP 36.6; O2SAT 99
[2025-01-30 21:54] VITALS: BP 118/88; PULSE 94; RESP 14; TEMP 36.6; O2SAT 99
--- NOTE | 2025-01-30 21:54 | PC.NURSE ---
medicated per mar, reviewed discharge instructions with pt. pt verbalized understanding.
== END 2025-01-30 21:55 | disposition home or self-care (01) ==
PROVIDERS: Physician Assistant; Emergency Provider Emergency Medicine; PCP Internal Medicine Medical Oncology
DX: N20.1 Calculus of ureter (principal); J45.909 Unspecified asthma, uncomplicated; Z98.84 Bariatric surgery status
CPT/HCPCS: 36415; 74176; 80048; 80076; 81001; 83690; 83735; 85025; 96372; 99284; J2270

== ENCOUNTER → 2025-01-30 15:05 | Outpatient (BNV) | payer OTHER, SELFPAY | PROVIDERS: PCP Internal Medicine Medical Oncology; Visit Provider Radiology Diagnostic Radiology | DX: N20.1 Calculus of ureter (principal); K80.20 Calculus of gallbladder without cholecystitis without obstruction | CPT/HCPCS: 74176 ==

== ENCOUNTER 2025-07-09 09:21 | Outpatient (AMB) | payer OTHER, SELFPAY ==
--- OUTSIDE RECORDS SUMMARY | 2024-05-11 08:30 | XMS_ITS ---
Author Organization [facility] Address [address] [place] [id number] Care Team Providers Care Nutrition Associate Name Role Phone Sonam MERCEDES, Mainor Primary Care Provider Unavailab Kiran Gibson Jr Unavailable [phone] REASON FOR VISIT screening Encounters Encounter Location Date Provider Diagnosis [facility] Outpatient [address] [place] [id number] 05/11/2024 Kiran Carlos Jr Colon cancer screening Z12.11 and Colon polyps K63.5 Assessments Encounter Date Diagnosis (ICD Code) Assessment Notes Treatment Notes Treatment Clinical Notes Section Notes 05/11/2024 Colon cancer screening (ICD-10 - Z12.11) 05/11/2024 Colon polyps (ICD-10 - K63.5) Plan Of Treatment No Information Progress Notes * BRITTANY GTZDOB:1975 (50 yo M)Acc No.[id number]:05/11/2024 COLON WITH MAC Patient: BRITTANY VILLEGAS Provider: Devaughn Carlos MD :1975 A ge:48 Y S ex:Male Date:05/11/2024 Address:[address] [place] [address] Pcp:Mainor Masters MD Subjective: * Chief Complaints: * 1 . Screening. * Medical History: Objective: * Vitals: Assessment: * Assessment: 1. C olon cancer screening - Z12.11 (Primary) 2 . C olon polyps - K63.5? Plan: * Treatment: * Procedure Codes: 4 5380 COLONOSCOPY AND BIOPSY * * The named appointment provid er may or may not be the originator of this progress note, and it is not deemed complete until electronically signed by the appointment provider. Sign off status: Pending * Provider: Devaughn Carlos MD Date: 0 05/11/2024 Generated for Felisha toure/Marianne/Lee on: 0 07/09/2025 09:55 AM EDT
--- OUTSIDE RECORDS SUMMARY | 2025-05-23 10:06 | XMS_ITS ---
Author Organization Mainor Masters III, MD Address [address] [place] [address] [place] [address] Care Team Providers Care Soaking Pits Supervisor Name Role Phone Mainor Masters Primary Care Provider REASON FOR VISIT retry to get auth for Zepbound Social History Sex Assigned At : Social History Observation Description Sex Assigned At Male Encounters Encounter Location Date Provider Diagnosis Mainor Masters III, MD [address] [place] [address] [place] [address] 05/23/2025 Mainor Masters Plan Of Treatment Next Appt Details Provider Name:Mainor Masters, 08/14/2025 10:45:00 AM, [address] [place] [address] [place], [address], Provider Name:Mainor Masters, 12/30/2025 02:00:00 PM, [address] [place] [address] [place], [address], Progress Notes * TRESA VarunDOB:1975 (49 yo M)Acc No.[id number]:05/23/2025 Patient: Varun VILLEGAS :1975 A ge:49 Y S ex:Male Address:[address] [place] [address], [id number] * true * Date: Generated for Printi ng/Faxing/eTransmitting on: 0 07/09/2025 09:55 AM EDT
--- NOTE | 2025-07-09 09:30 | MHC.OFFVIS ---
Vital Signs 07/09/25 09:31 Height 5 ft 10 in Weight 275 lb 9.245 oz BMI 39.5 BP 110/74 Blood Pressure Location Lt brachial Position Sitting Pulse 82 Pulse Source Pulse Oximeter Pulse Oximetry (%) 96 Oxygen Delivery Method Room Air Intake Visit Reasons: Obstructive sleep apnea Intake Note: pt is here for follow up of KLARISSA [employer] Required: No Allergies No Known Allergies (No Known Allergies*) Allergy (Verified 07/09/25 09:55) Medication List - Last Reconciled 07/09/25 by Ambrocio Becker MD bupropion HCl XL 300 mg PO DAILY cholecalciferol (vitamin D3) (Vitamin D3) 125 mcg PO DAILY sertraline 25 mg PO DAILY tadalafil 5 mg PO DAILY tamsulosin 0.4 mg PO BEDTIME tirzepatide (weight loss) (Zepbound) 5 mg subcut QWEEK Do you need a note to return to daycare/school/sports/work: No HPI HPI Obstructive sleep apnea: Details: This 50 years old gentleman is here for follow-up after 6 months. 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 He is avid user of CPAP, uses every night up to 9-1/2 hours and gets good sleep. He has no issues with the mask or CPAP device. He is unemployed at this time and spends plenty of time in sleeping, but then remains active during the daytime. Patient is being treated with bupropion and sertraline for his depression. For weight loss he is on Zepbound treatment 5 mg subQ Q 1 week. [facility] Medical History Asthma Morbid obesity KLARISSA on CPAP Vitamin B12 deficiency Vitamin D deficiency Intestinal malabsorption following gastrectomy Surgical History Hx of laparoscopic gastric banding S/P laparoscopic sleeve gastrectomy Family History Father No problems noted. Mother Sleep apnea Social History Alcohol intake: current Alcohol intake frequency: does not drink Patient Tobacco Use Status: Never used Tobacco Years Smoked: 1 year Review of Systems Const All systems reviewed & are unremarkable except as noted in HPI and below Denies snoring Eyes Reports no additional complaints ENT Reports no additional complaints Card Denies chest pain, Denies irregular heart rhythm, Denies leg edema and Denies dyspnea on exertion Resp Denies cough, Denies dyspnea on exertion, Denies snoring and Denies wheezing GI Reports as per HPI Reports no additional complaints Musc Reports no additional complaints Skin/Breast Reports system reviewed and no additional complaints, except as documented Neuro Reports no additional complaints Psych Reports no additional complaints Aller/Immun Denies wheezing Physical Exam Vital Signs: Last Vital Signs Pulse 82 07/09/25 09:31 BP 110/74 07/09/25 09:31 Pulse Ox 96 07/09/25 09:31 Oxygen Delivery Method Room Air 07/09/25 09:31 BMI result Body Mass Index 39.5 Const General: healthy appearing, comfortable, no acute distress, alert and awake Orientation/consciousness: patient oriented x3 HEENT Head: Yes normal to inspection General nose exam: No nasal polyps present and No nasal discharge present Face and sinus: Yes sinuses nontender Mouth: oropharynx normal Throat: Yes posterior oropharynx normal Eyes General: appearance normal, both eyes and all related structures Neck Neck: Yes normal visual inspection, Yes no lymphadenopathy, Yes trachea midline and Yes no JVD Thyroid: Thyroid normal Chest Chest palpation & inspection: normal inspection of the chest, normal palpation of entire chest wall and no tenderness Resp Effort & Inspection: normal respiratory effort Auscultation: clear to auscultation bilaterally, no crackles and no wheezes Percussion: percussion normal Cardio Palpation: normal PMI Rate: regular rate Rhythm: regular rhythm Heart sounds: no gallops and no murmurs Peripheral pulses: Peripheral pulses 2+ throughout GI Palpation (GI): Soft to palpation, nontender, No hepatosplenomegaly present and no masses Auscultation: normal bowel sounds Back/Spine/Pelvis Thoracic/Lumbar Spine: thoracic and lumbar spine normal to inspection Skin General skin exam: no rashes or lesions noted Neuro General: patient oriented x3 and no focal motor deficits Cranial nerves: Yes CN's II-XII intact bilaterally Extrem General: Yes normal to inspection, Yes no clubbing, cyanosis or edema and Yes no calf tenderness Psych Appearance: grossly normal and well kempt Speech and movement: Normal speech and movement present Results Reviewed Results Reviewed: Compliance report for the last 30 nights shows that he has used 100% of the nights with average use it per night 9 hours 26 minutes. This includes some usage during the daytime as well. There is no significant air leak and residual AHI 2.5 Assessment & Plan Assessment & Plan (1) KLARISSA on CPAP: Comment: HE HAS LONGSTANDING HISTORY OF OBSTRUCTIVE SLEEP APNEA. HE HAS BEEN A REGULAR USER OF CPAP WITH GOOD RESULTS. CURRENTLY HE HAS NO PROBLEMS WITH THE USE OF CPAP AND HE IS NOT AWARE OF ANY EXCESSIVE SNORING. THE COMPLIANCE REPORT IS GOOD, WITH RESIDUAL AHI OF 2.5 Code(s): G47.33 - Obstructive sleep apnea (adult) (pediatric); Z99.89 - Dependence on other enabling machines and devices Category: Medical Plan: Commended for excellent compliance and encouraged to keep on using the CPAP every night . (2) Morbid obesity: Comment: THIS GENTLEMAN HAS HISTORY OF BARIATRIC SURGERY IN THE PAST. INITIALLY HE DID LOSE SOME WEIGHT. CURRENTLY HE IS ALSO ON ZEPBOUND INJECTIONS, AND SINCE HIS LAST VISIT 6 MONTHS AGO HE IS DOWN BY 4 LBs. Code(s): E66.01 - Morbid (severe) obesity due to excess calories Category: Medical Plan: ADVISED TO CONTINUE ON WEIGHT LOSS PROGRAM . Coding Level of Care Code Est Pt Level 3 (22181) Diagnoses KLARISSA on CPAP G47.33; Z99.89 Morbid obesity E66.01
[2025-07-09 09:31] VITALS: BP 110/74; PULSE 82; O2SAT 96; BMI 39.5
--- OUTSIDE RECORDS SUMMARY | 2025-07-09 09:55 | XMS_ITS | Clinical Summary ---
Author Organization [facility] Address [address] [place] [address] Care Team Providers Care Field Crop Technical Officer Name Role Phone Unavailable Primary Care Provider [...] - 19+ 3-dose series) 1996 COVID-19 Vaccine ( - 2023-2 5 season) 2024 Depression Screening 11/28/2024 Influenza Vaccine (#1) 2025 HIB Vaccines Aged Out No longer eligi [...] age to complete this topic Meningococcal B Vaccine Aged Out No l onger eligible based on patient's age to complete this topic Pneumococcal Vaccine: Pediat rics (0 to 5 Years) and At-Risk Patients (6 to 49 Years) Aged Out No longer eligible b ased on patient's age to complete this topic RSV Immunization Patients Un yeny 20 months Aged Out No longer eligible b ased on patient's age to complete this topic Varicella Vaccines Aged Out No longer eligible based on patient's age to complete this topic
== END 2025-07-09 09:55 | disposition home or self-care (01) ==
LOC: HO.HPS 09:21
PROVIDERS: PCP Internal Medicine Medical Oncology; Visit Provider Internal Medicine
DX: G47.33 Obstructive sleep apnea (adult) (pediatric) (principal); Z99.89 Dependence on other enabling machines and devices; E66.01 Morbid (severe) obesity due to excess calories
CPT/HCPCS: 99213

== ENCOUNTER → 2025-07-09 09:21 | Outpatient (BNVA) | payer OTHER, SELFPAY | PROVIDERS: PCP Internal Medicine Medical Oncology; Visit Provider Internal Medicine | DX: G47.33 Obstructive sleep apnea (adult) (pediatric) (principal); Z99.89 Dependence on other enabling machines and devices; E66.01 Morbid (severe) obesity due to excess calories | CPT/HCPCS: 99212 ==